=== PATIENT | female | born 1950 ===

== ENCOUNTER 2020-06-27 02:09 | Inpatient (IN) | payer OTHER ==
[2020-06-27] MEDS ORDERED: ACETAMINOPHEN 1000 MG/100 ML VIAL (NON FORMULARY) IVPB ONE (02:25)
[2020-06-27] MEDS ORDERED: SODIUM CHLORIDE 0.9% 1000 ML INFUS.BAG IV ONE (02:30)
[2020-06-27] MEDS ORDERED: SODIUM CHLORIDE 0.9% 1000 ML INFUS.BAG IV SCH (02:30)
[2020-06-27] MEDS ORDERED: ACETAMINOPHEN INJECTION 100 ML IVPB ONE ×2 (02:50→03:18)
[2020-06-27 02:51] LABS: BASO % 0.4 % (0-2.0); EOS % 1.7 % (0-4.5); HEMATOCRIT 27.7 % (32.4-45.2); HEMOGLOBIN 9.2 GM/dL (10.7-15.3); LYMPH % 12.4 % (8-40); MCH 28.6 pg (25.7-33.7); MCHC 33.1 g/dl (32.0-36.0); MEAN CELL VOLUME 86.3 fl (80-96); MEAN PLT VOLUME 10.4 fl (7.5-11.1); NEUT % 72.5 % (42.8-82.8); PLATELET COUNT 266 K/MM3 (134-434); RBC 3.21 M/mm3 (3.60-5.2); RDW 13.8 % (11.6-15.6); WHITE BLOOD COUNT 6.4 K/mm3 (4.0-10.0)
[2020-06-27] MEDS ORDERED: VANCOMYCIN 1 GM in D5W (PRE-DOCKED) 1,000 MG/250 ML IVPB ONE (02:54)
[2020-06-27] MEDS ORDERED: PIPERACILLIN/TAZOB 3.375 GM 3.375 GM in DEXTROSE 5%-WATER - 50 ML IVPB ONE (02:55)
[2020-06-27 03:02] LABS: VENOUS BASE EXCESS 4.7 mmol/L (-2-2); VENOUS O2 SATURATION 88.9 % (70-80); VENOUS PH 7.427 (7.310-7.410)
[2020-06-27 03:07] LABS: CHLORIDE 98 mmol/L (98-107); POTASSIUM 3.8 mmol/L (3.5-5.1); SODIUM 136 mmol/L (136-145)
[2020-06-27 03:09] LABS: ALBUMIN 1.8 g/dl (3.4-5.0)
[2020-06-27 03:10] LABS: ANION GAP 7 MMOL/L (8-16); BLOOD UREA NITROGEN 32.1 mg/dL (7-18); CO2 31 mmol/L (21-32); GLUCOSE,RANDOM 150 mg/dL (74-106)
[2020-06-27 03:12] LABS: INR 1.18 (0.83-1.09); PROTHROMBIN TIME (PATIENT) 14.5 SEC (9.7-13.0)
[2020-06-27 03:13] LABS: CREATININE 1.2 mg/dL (0.55-1.3); SGOT/AST 38 U/L (15-37); SGPT/ALT 76 U/L (13-61)
[2020-06-27 03:14] LABS: BILIRUBIN,TOTAL 0.6 mg/dL (0.2-1); TOT PROT 6.4 g/dl (6.4-8.2)
[2020-06-27 03:15] LABS: ACTIVATED PTT 38.6 SECONDS (25.2-36.5); ALK PHOS 282 U/L (45-117)
[2020-06-27] MEDS ORDERED: AZTREONAM 2 GM in DEXTROSE 5%-WATER 100 ML IVPB ONE (03:23)
[2020-06-27] MEDS ORDERED: VANCOMYCIN 1 GRAM (PRE-DOCKED) 1,000 MG/250 ML BAG IVPB ONE (03:27)
[2020-06-27] MEDS ORDERED: PIPERACILLIN/TAZOB 3.375 GM 3.375 GM/50 ML BAG IVPB ONE (03:28)
[2020-06-27 03:31] LABS: BILIRUBIN,DIRECT 0.3 mg/dL (0.0-0.2)
[2020-06-27 03:38] LABS: EPI CELLS 17 /uL (0-25.1); HYALINE CASTS 3 /uL (0-3.1); URINE APPEARANCE TURBID; URINE BACTERIA >9,000 /uL (0-1359); URINE BILIRUBIN 1+ (NEGATIVE); URINE COLOR DK YELLOW; URINE GLUCOSE (UA) NEGATIVE (NEGATIVE); URINE KETONE NEGATIVE (NEGATIVE); URINE LEUK ESTERASE 3+ (NEGATIVE); URINE NITRITE NEGATIVE (NEGATIVE); URINE PROTEIN NEGATIVE (NEGATIVE); URINE RBC 48 /uL (0-23.9); URINE WBC 2912 /uL (0-25.8)
[2020-06-27] MEDS ORDERED: LACTATED RINGERS SOLUTION 1000 ML INFUS.BAG IV ONE (05:06)
[2020-06-27 06:04] LABS: ANISOCYTOSIS 2+; MACROCYTOSIS 0; PLATELET ESTIMATE NORMAL
[2020-06-27] MEDS ORDERED: AZTREONAM 1 GM VIAL (RESTRICTED TO ID) ONE (07:34)
[2020-06-27] MEDS ORDERED: NOREPINEPHRINE BITARTRATE 4 MG/4 ML ML IV ONE (07:34)
[2020-06-27] MEDS: NOREPINEPHRINE BITARTRATE 8,000 MCG/500 ML BAG IVPB SCH ×2 (08:49→08:57)
[2020-06-27] MEDS ORDERED: NOREPINEPHRINE NS PREMIX 8,000 MCG/500 ML BAG IVPB SCH (09:15)
[2020-06-27] MEDS ORDERED: LACTATED RINGERS SOLUTION 1,000 ML/1,000 ML INFUS.BAG IV STA (10:08)
[2020-06-27] MEDS: LACTATED RINGERS SOLUTION 1,000 ML/1,000 ML INFUS.BAG IV SCH ×2 (11:43→22:01)
[2020-06-27 12:30] VITALS: BMI 27.4
[2020-06-27] MEDS: VANCOMYCIN 1 GRAM (PRE-DOCKED) 1,000 MG/250 ML BAG IVPB SCH (16:11)
[2020-06-27] MEDS ORDERED: PIPERACILLIN/TAZOBACTAM 3.375 GM VIAL IVPB ONE (16:56)
[2020-06-27] MEDS ORDERED: DEXTROSE 5%-WATER - 50 ML IVPB ONE (16:57)
[2020-06-27] MEDS: PIPERACILLIN/TAZOB 3.375 GM 3.375 GM in DEXTROSE 5%-WATER - 50 ML IVPB SCH (17:05)
[2020-06-28] MEDS: PIPERACILLIN/TAZOB 3.375 GM 3.375 GM in DEXTROSE 5%-WATER - 50 ML IVPB SCH ×3 (02:55→17:10)
[2020-06-28] MEDS ORDERED: DEXTROSE 5%-WATER - 50 ML IVPB ONE ×4 (03:15→23:41)
[2020-06-28] MEDS ORDERED: PIPERACILLIN/TAZOBACTAM 3.375 GM VIAL IVPB ONE ×4 (03:15→23:41)
[2020-06-28] MEDS: VANCOMYCIN 1 GRAM (PRE-DOCKED) 1,000 MG/250 ML BAG IVPB SCH ×2 (03:26→15:03)
[2020-06-28 06:50] LABS: BASO % 0.4 % (0-2.0); EOS % 0.8 % (0-4.5); HEMATOCRIT 26.1 % (32.4-45.2); HEMOGLOBIN 8.8 GM/dL (10.7-15.3); LYMPH % 11.1 % (8-40); MCH 28.7 pg (25.7-33.7); MCHC 33.6 g/dl (32.0-36.0); MEAN CELL VOLUME 85.5 fl (80-96); MEAN PLT VOLUME 10.1 fl (7.5-11.1); MONO % 10.3 % (3.8-10.2); NEUT % 77.4 % (42.8-82.8); PLATELET COUNT 251 K/MM3 (134-434); RBC 3.05 M/mm3 (3.60-5.2); RDW 14.1 % (11.6-15.6); WHITE BLOOD COUNT 6.5 K/mm3 (4.0-10.0)
[2020-06-28 07:11] LABS: POTASSIUM 3.5 mmol/L (3.5-5.1)
[2020-06-28 07:12] LABS: CALCIUM 8.8 mg/dL (8.5-10.1)
[2020-06-28 07:13] LABS: ALBUMIN 1.6 g/dl (3.4-5.0); BLOOD UREA NITROGEN 11.2 mg/dL (7-18); MAGNESIUM 1.6 mg/dL (1.8-2.4)
[2020-06-28 07:16] LABS: CREATININE 0.7 mg/dL (0.55-1.3)
[2020-06-28 07:17] LABS: BILIRUBIN,TOTAL 0.7 mg/dL (0.2-1); TOT PROT 6.1 g/dl (6.4-8.2)
[2020-06-28] MEDS: LACTATED RINGERS SOLUTION 1,000 ML/1,000 ML INFUS.BAG IV SCH ×2 (07:53→18:46)
[2020-06-28] MEDS ORDERED: PT OWN MED DRAWER 7, Y5N ONE ×2 (07:58→09:28)
[2020-06-28] MEDS ORDERED: MAGNESIUM 1GM/D5W 100ML - 100 ML IVPB IVPB ONE (09:00)
[2020-06-28] MEDS: FAMOTIDINE 40 MG/5 ML ORAL SUSPENSION PEG SCH (10:34)
[2020-06-28 18:40] LABS: URINE APPEARANCE CLEAR; URINE BILIRUBIN NEGATIVE (NEGATIVE); URINE COLOR YELLOW; URINE GLUCOSE (UA) NEGATIVE (NEGATIVE); URINE KETONE NEGATIVE (NEGATIVE); URINE LEUK ESTERASE NEGATIVE (NEGATIVE); URINE NITRITE NEGATIVE (NEGATIVE); URINE PROTEIN NEGATIVE (NEGATIVE)
[2020-06-29] MEDS: PIPERACILLIN/TAZOB 3.375 GM 3.375 GM in DEXTROSE 5%-WATER - 50 ML IVPB SCH ×3 (01:45→17:11)
[2020-06-29] MEDS: VANCOMYCIN 1 GRAM (PRE-DOCKED) 1,000 MG/250 ML BAG IVPB SCH ×2 (04:24→16:30)
[2020-06-29 07:04] LABS: HEMATOCRIT 26.1 % (32.4-45.2); HEMOGLOBIN 8.9 GM/dL (10.7-15.3); MCH 29.1 pg (25.7-33.7); MCHC 33.9 g/dl (32.0-36.0); MEAN PLT VOLUME 10.1 fl (7.5-11.1); PLATELET COUNT 255 K/MM3 (134-434); RBC 3.04 M/mm3 (3.60-5.2)
[2020-06-29 07:23] LABS: POTASSIUM 3.3 mmol/L (3.5-5.1)
[2020-06-29 07:29] LABS: ALBUMIN 1.6 g/dl (3.4-5.0); CALCIUM 8.6 mg/dL (8.5-10.1)
[2020-06-29 07:30] LABS: BLOOD UREA NITROGEN 8.5 mg/dL (7-18)
[2020-06-29 07:31] LABS: BILIRUBIN,TOTAL 0.7 mg/dL (0.2-1); TOT PROT 6.3 g/dl (6.4-8.2)
[2020-06-29 07:33] LABS: CREATININE 0.7 mg/dL (0.55-1.3); MAGNESIUM 1.9 mg/dL (1.8-2.4)
[2020-06-29 09:06] LABS: WHITE BLOOD COUNT 12.3 K/mm3 (4.0-10.0)
[2020-06-29 09:07] LABS: MACROCYTOSIS 1+; PLATELET ESTIMATE NORMAL
[2020-06-29] MEDS ORDERED: PIPERACILLIN/TAZOBACTAM 3.375 GM VIAL IVPB ONE ×2 (09:22→16:26)
[2020-06-29] MEDS ORDERED: DEXTROSE 5%-WATER - 50 ML IVPB ONE ×2 (09:22→16:27)
[2020-06-29] MEDS ORDERED: PT OWN MED DRAWER 7, Y5N ONE (16:25)
[2020-06-29] MEDS: LACTATED RINGERS SOLUTION 1,000 ML/1,000 ML INFUS.BAG IV SCH (16:30)
[2020-06-29] MEDS: FAMOTIDINE 40 MG/5 ML ORAL SUSPENSION PEG SCH (16:31)
[2020-06-29] MEDS ORDERED: POTASSIUM CHLORIDE ORAL LIQUID 20 MEQ/15 ML PO ONE (19:28)
[2020-06-30] MEDS ORDERED: PIPERACILLIN/TAZOBACTAM 3.375 GM VIAL IVPB ONE ×3 (03:22→17:44)
[2020-06-30] MEDS ORDERED: DEXTROSE 5%-WATER - 50 ML IVPB ONE ×3 (03:22→17:44)
[2020-06-30] MEDS: PIPERACILLIN/TAZOB 3.375 GM 3.375 GM in DEXTROSE 5%-WATER - 50 ML IVPB SCH ×3 (03:27→18:23)
[2020-06-30] MEDS: VANCOMYCIN 1 GRAM (PRE-DOCKED) 1,000 MG/250 ML BAG IVPB SCH ×2 (05:55→15:06)
[2020-06-30 07:06] LABS: HEMATOCRIT 28.1 % (32.4-45.2); HEMOGLOBIN 9.3 GM/dL (10.7-15.3); MCH 28.4 pg (25.7-33.7); MCHC 33.1 g/dl (32.0-36.0); MEAN CELL VOLUME 85.8 fl (80-96); MEAN PLT VOLUME 9.5 fl (7.5-11.1); PLATELET COUNT 260 K/MM3 (134-434); RBC 3.27 M/mm3 (3.60-5.2); RDW 13.8 % (11.6-15.6); WHITE BLOOD COUNT 5.2 K/mm3 (4.0-10.0)
[2020-06-30 07:27] LABS: POTASSIUM 3.8 mmol/L (3.5-5.1)
[2020-06-30 07:29] LABS: BLOOD UREA NITROGEN 11.3 mg/dL (7-18); CALCIUM 8.6 mg/dL (8.5-10.1)
[2020-06-30 07:30] LABS: ALBUMIN 1.7 g/dl (3.4-5.0)
[2020-06-30 07:33] LABS: CREATININE 0.6 mg/dL (0.55-1.3)
[2020-06-30 07:34] LABS: BILIRUBIN,TOTAL 0.5 mg/dL (0.2-1); TOT PROT 6.2 g/dl (6.4-8.2)
[2020-06-30] MEDS ORDERED: PT OWN MED DRAWER 7, Y5N ONE (08:57)
[2020-06-30] MEDS: LACTATED RINGERS SOLUTION 1,000 ML/1,000 ML INFUS.BAG IV SCH ×3 (09:02→21:00)
[2020-06-30] MEDS: FAMOTIDINE 40 MG/5 ML ORAL SUSPENSION PEG SCH (09:40)
[2020-07-01] MEDS ORDERED: DEXTROSE 5%-WATER - 50 ML IVPB ONE ×4 (02:10→17:14)
[2020-07-01] MEDS ORDERED: PIPERACILLIN/TAZOBACTAM 3.375 GM VIAL IVPB ONE ×4 (02:10→17:14)
[2020-07-01] MEDS: PIPERACILLIN/TAZOB 3.375 GM 3.375 GM in DEXTROSE 5%-WATER - 50 ML IVPB SCH ×3 (02:11→17:16)
[2020-07-01] MEDS: FAMOTIDINE 40 MG/5 ML ORAL SUSPENSION PEG SCH (09:20)
[2020-07-01] MEDS: LACTATED RINGERS SOLUTION 1,000 ML/1,000 ML INFUS.BAG IV SCH ×3 (14:32→20:28)
[2020-07-01] MEDS: POLYETHYLENE GLYCOL 3350 119 GM BTL PEG SCH (22:07)
[2020-07-02] MEDS ORDERED: PIPERACILLIN/TAZOBACTAM 3.375 GM VIAL IVPB ONE ×3 (01:49→18:53)
[2020-07-02] MEDS ORDERED: DEXTROSE 5%-WATER - 50 ML IVPB ONE ×3 (01:49→18:53)
[2020-07-02] MEDS: PIPERACILLIN/TAZOB 3.375 GM 3.375 GM in DEXTROSE 5%-WATER - 50 ML IVPB SCH ×3 (02:05→19:00)
[2020-07-02] MEDS: LACTATED RINGERS SOLUTION 1,000 ML/1,000 ML INFUS.BAG IV SCH ×2 (02:05→21:28)
[2020-07-02] MEDS: SCOPOLAMINE HYDROBROMIDE 1 PATCH PATCH.TD72 TD SCH (08:25)
[2020-07-02] MEDS ORDERED: PT OWN MED DRAWER 7, Y5N ONE (10:10)
[2020-07-02] MEDS: FAMOTIDINE 40 MG/5 ML ORAL SUSPENSION PEG SCH (10:12)
[2020-07-02] MEDS: POLYETHYLENE GLYCOL 3350 119 GM BTL PEG SCH ×2 (10:12→21:29)
[2020-07-02] MEDS: VANCOMYCIN 1 GRAM (PRE-DOCKED) 1,000 MG/250 ML BAG IVPB SCH (11:28)
[2020-07-02] MEDS ORDERED: hydrALAZINE HCL 20 MG/ML VIAL IVPUSH PRN (14:17)
[2020-07-02] MEDS: CARVEDILOL 6.25 MG TABLET (FP) GT SCH (21:29)
[2020-07-03] MEDS: PIPERACILLIN/TAZOB 3.375 GM 3.375 GM in DEXTROSE 5%-WATER - 50 ML IVPB SCH ×3 (03:22→17:49)
[2020-07-03] MEDS ORDERED: DEXTROSE 5%-WATER - 50 ML IVPB ONE ×4 (05:16→21:25)
[2020-07-03] MEDS ORDERED: PIPERACILLIN/TAZOBACTAM 3.375 GM VIAL IVPB ONE ×4 (05:16→21:25)
[2020-07-03 06:49] LABS: HEMATOCRIT 29.5 % (32.4-45.2); HEMOGLOBIN 9.7 GM/dL (10.7-15.3); MCH 28.4 pg (25.7-33.7); MCHC 32.9 g/dl (32.0-36.0); MEAN CELL VOLUME 86.4 fl (80-96); MEAN PLT VOLUME 8.3 fl (7.5-11.1); PLATELET COUNT 254 K/MM3 (134-434); RBC 3.41 M/mm3 (3.60-5.2); RDW 14.2 % (11.6-15.6); WHITE BLOOD COUNT 6.1 K/mm3 (4.0-10.0)
[2020-07-03 07:31] LABS: BLOOD UREA NITROGEN 13.6 mg/dL (7-18); CALCIUM 8.9 mg/dL (8.5-10.1); MAGNESIUM 2.1 mg/dL (1.8-2.4); PHOSPHOROUS 4.1 mg/dL (2.5-4.9); POTASSIUM 3.6 mmol/L (3.5-5.1)
[2020-07-03] MEDS: cloNIDine HCL 0.1 MG TABLET GT SCH ×2 (08:54→21:26)
[2020-07-03] MEDS: CARVEDILOL 6.25 MG TABLET (FP) GT SCH ×2 (09:04→21:26)
[2020-07-03] MEDS: POLYETHYLENE GLYCOL 3350 119 GM BTL PEG SCH ×2 (09:05→21:26)
[2020-07-03] MEDS ORDERED: PT OWN MED DRAWER 7, Y5N ONE (09:08)
[2020-07-03] MEDS: FAMOTIDINE 40 MG/5 ML ORAL SUSPENSION PEG SCH (09:11)
[2020-07-03] MEDS: VANCOMYCIN 1 GRAM (PRE-DOCKED) 1,000 MG/250 ML BAG IVPB SCH (10:23)
[2020-07-03] MEDS ORDERED: ALBUTEROL SO4 2.5/IPRATROPIUM 0.5 INH SOL 3 ML VIAL.NEB. NEB PRN (13:49)
[2020-07-03] MEDS: ATORVASTATIN CA 10 MG TABLET (FP) PEG SCH (21:26)
[2020-07-03] MEDS: LACTATED RINGERS SOLUTION 1,000 ML/1,000 ML INFUS.BAG IV SCH ×2 (21:26→23:29)
[2020-07-04] MEDS: PIPERACILLIN/TAZOB 3.375 GM 3.375 GM in DEXTROSE 5%-WATER - 50 ML IVPB SCH ×3 (02:28→17:41)
[2020-07-04 07:28] LABS: HEMATOCRIT 27.5 % (32.4-45.2); MCH 28.5 pg (25.7-33.7); MCHC 32.9 g/dl (32.0-36.0); MEAN CELL VOLUME 86.6 fl (80-96); MEAN PLT VOLUME 8.5 fl (7.5-11.1); PLATELET COUNT 245 K/MM3 (134-434); RBC 3.17 M/mm3 (3.60-5.2); RDW 14.3 % (11.6-15.6); WHITE BLOOD COUNT 5.1 K/mm3 (4.0-10.0)
[2020-07-04 07:34] LABS: POTASSIUM 3.7 mmol/L (3.5-5.1)
[2020-07-04 07:36] LABS: CALCIUM 9.1 mg/dL (8.5-10.1)
[2020-07-04 07:37] LABS: BLOOD UREA NITROGEN 13.1 mg/dL (7-18); MAGNESIUM 2.2 mg/dL (1.8-2.4)
[2020-07-04 07:40] LABS: CREATININE 0.8 mg/dL (0.55-1.3); PHOSPHOROUS 3.5 mg/dL (2.5-4.9)
[2020-07-04] MEDS ORDERED: DEXTROSE 5%-WATER - 50 ML IVPB ONE ×2 (08:07→17:36)
[2020-07-04] MEDS ORDERED: PIPERACILLIN/TAZOBACTAM 3.375 GM VIAL IVPB ONE ×2 (08:07→17:36)
[2020-07-04] MEDS: CARVEDILOL 6.25 MG TABLET (FP) GT SCH ×2 (09:28→21:29)
[2020-07-04] MEDS: POLYETHYLENE GLYCOL 3350 119 GM BTL PEG SCH ×2 (09:28→21:29)
[2020-07-04] MEDS: ASPIRIN 81 MG CHEWABLE TABLETS PEG SCH (09:28)
[2020-07-04] MEDS: FAMOTIDINE 40 MG/5 ML ORAL SUSPENSION PEG SCH (09:28)
[2020-07-04] MEDS: cloNIDine HCL 0.1 MG TABLET GT SCH ×2 (09:29→21:29)
[2020-07-04] MEDS ORDERED: PT OWN MED DRAWER 7, Y5N ONE (10:30)
[2020-07-04] MEDS: VANCOMYCIN 1 GRAM (PRE-DOCKED) 1,000 MG/250 ML BAG IVPB SCH (10:46)
[2020-07-04] MEDS: ATORVASTATIN CA 10 MG TABLET (FP) PEG SCH (21:29)
[2020-07-04] MEDS: LACTATED RINGERS SOLUTION 1,000 ML/1,000 ML INFUS.BAG IV SCH (21:29)
[2020-07-05] MEDS ORDERED: PIPERACILLIN/TAZOBACTAM 3.375 GM VIAL IVPB ONE ×2 (01:41→08:37)
[2020-07-05] MEDS ORDERED: DEXTROSE 5%-WATER - 50 ML IVPB ONE ×2 (01:41→08:37)
[2020-07-05] MEDS: PIPERACILLIN/TAZOB 3.375 GM 3.375 GM in DEXTROSE 5%-WATER - 50 ML IVPB SCH ×2 (01:46→09:27)
[2020-07-05 09:02] LABS: HEMATOCRIT 25.9 % (32.4-45.2); HEMOGLOBIN 8.6 GM/dL (10.7-15.3); MCH 28.8 pg (25.7-33.7); MCHC 33.4 g/dl (32.0-36.0); MEAN CELL VOLUME 86.4 fl (80-96); MEAN PLT VOLUME 8.6 fl (7.5-11.1); PLATELET COUNT 232 K/MM3 (134-434); RDW 14.2 % (11.6-15.6); WHITE BLOOD COUNT 5.5 K/mm3 (4.0-10.0)
[2020-07-05] MEDS ORDERED: PT OWN MED DRAWER 7, Y5N ONE (09:22)
[2020-07-05 09:24] LABS: POTASSIUM 3.6 mmol/L (3.5-5.1)
[2020-07-05] MEDS: cloNIDine HCL 0.1 MG TABLET GT SCH ×2 (09:26→21:16)
[2020-07-05] MEDS: CARVEDILOL 6.25 MG TABLET (FP) GT SCH ×2 (09:26→21:16)
[2020-07-05] MEDS: SCOPOLAMINE HYDROBROMIDE 1 PATCH PATCH.TD72 TD SCH (09:26)
[2020-07-05] MEDS: FAMOTIDINE 40 MG/5 ML ORAL SUSPENSION PEG SCH (09:27)
[2020-07-05] MEDS: ASPIRIN 81 MG CHEWABLE TABLETS PEG SCH (09:27)
[2020-07-05] MEDS: POLYETHYLENE GLYCOL 3350 119 GM BTL PEG SCH (09:28)
[2020-07-05 09:32] LABS: BLOOD UREA NITROGEN 12.8 mg/dL (7-18); CALCIUM 9.3 mg/dL (8.5-10.1)
[2020-07-05 09:35] LABS: CREATININE 0.7 mg/dL (0.55-1.3)
[2020-07-05] MEDS: ATORVASTATIN CA 10 MG TABLET (FP) PEG SCH (21:16)
[2020-07-05] MEDS: VANCOMYCIN 250 MG/5 ML ORAL SOLUTION GT SCH (23:30)
[2020-07-05] MEDS: LACTATED RINGERS SOLUTION 1,000 ML/1,000 ML INFUS.BAG IV SCH (23:47)
[2020-07-06] MEDS: VANCOMYCIN 250 MG/5 ML ORAL SOLUTION GT SCH ×4 (05:27→23:08)
[2020-07-06] MEDS ORDERED: PT OWN MED DRAWER 7, Y5N ONE (09:49)
[2020-07-06] MEDS: ASPIRIN 81 MG CHEWABLE TABLETS PEG SCH (10:12)
[2020-07-06] MEDS: cloNIDine HCL 0.1 MG TABLET GT SCH ×2 (10:12→21:52)
[2020-07-06] MEDS: CARVEDILOL 6.25 MG TABLET (FP) GT SCH ×2 (10:12→21:52)
[2020-07-06] MEDS: FAMOTIDINE 40 MG/5 ML ORAL SUSPENSION PEG SCH (10:13)
[2020-07-06] MEDS: LACTATED RINGERS SOLUTION 1,000 ML/1,000 ML INFUS.BAG IV SCH ×2 (14:19→18:33)
[2020-07-06] MEDS: ATORVASTATIN CA 10 MG TABLET (FP) PEG SCH (21:52)
[2020-07-07] MEDS: LACTATED RINGERS SOLUTION 1,000 ML/1,000 ML INFUS.BAG IV SCH (03:57)
[2020-07-07] MEDS: VANCOMYCIN 250 MG/5 ML ORAL SOLUTION GT SCH ×3 (05:06→17:29)
[2020-07-07] MEDS: CARVEDILOL 6.25 MG TABLET (FP) GT SCH ×2 (09:34→21:35)
[2020-07-07] MEDS: FAMOTIDINE 40 MG/5 ML ORAL SUSPENSION PEG SCH (09:35)
[2020-07-07] MEDS: cloNIDine HCL 0.1 MG TABLET GT SCH ×2 (09:35→21:35)
[2020-07-07] MEDS: ASPIRIN 81 MG CHEWABLE TABLETS PEG SCH (09:35)
[2020-07-07] MEDS: ATORVASTATIN CA 10 MG TABLET (FP) PEG SCH (21:35)
[2020-07-08] MEDS: VANCOMYCIN 250 MG/5 ML ORAL SOLUTION GT SCH ×4 (00:05→17:47)
[2020-07-08] MEDS: SCOPOLAMINE HYDROBROMIDE 1 PATCH PATCH.TD72 TD SCH (09:40)
[2020-07-08] MEDS: FAMOTIDINE 40 MG/5 ML ORAL SUSPENSION PEG SCH (09:41)
[2020-07-08] MEDS: ASPIRIN 81 MG CHEWABLE TABLETS PEG SCH (09:47)
[2020-07-08] MEDS: CARVEDILOL 6.25 MG TABLET (FP) GT SCH ×2 (09:47→21:47)
[2020-07-08] MEDS: cloNIDine HCL 0.1 MG TABLET GT SCH ×2 (09:47→21:47)
[2020-07-08] MEDS: ATORVASTATIN CA 10 MG TABLET (FP) PEG SCH (21:46)
[2020-07-09] MEDS: VANCOMYCIN 250 MG/5 ML ORAL SOLUTION GT SCH ×5 (00:07→23:39)
[2020-07-09] MEDS: ASPIRIN 81 MG CHEWABLE TABLETS PEG SCH (10:19)
[2020-07-09] MEDS: CARVEDILOL 6.25 MG TABLET (FP) GT SCH ×2 (10:19→22:22)
[2020-07-09] MEDS: cloNIDine HCL 0.1 MG TABLET GT SCH ×2 (10:19→22:22)
[2020-07-09] MEDS: AMINO ACIDS/PROTEIN HYDROLYS 30 ML LIQUID.PKT PEG SCH (10:19)
[2020-07-09] MEDS: FAMOTIDINE 40 MG/5 ML ORAL SUSPENSION PEG SCH (15:03)
[2020-07-09] MEDS: ATORVASTATIN CA 10 MG TABLET (FP) PEG SCH (22:22)
[2020-07-10] MEDS: VANCOMYCIN 250 MG/5 ML ORAL SOLUTION GT SCH ×4 (05:10→23:10)
[2020-07-10] MEDS ORDERED: PT OWN MED DRAWER 7, Y5N ONE (09:53)
[2020-07-10] MEDS: ASPIRIN 81 MG CHEWABLE TABLETS PEG SCH (11:54)
[2020-07-10] MEDS: AMINO ACIDS/PROTEIN HYDROLYS 30 ML LIQUID.PKT PEG SCH (11:54)
[2020-07-10] MEDS: CARVEDILOL 6.25 MG TABLET (FP) GT SCH ×2 (11:54→21:01)
[2020-07-10] MEDS: cloNIDine HCL 0.1 MG TABLET GT SCH ×2 (11:55→21:01)
[2020-07-10] MEDS: FAMOTIDINE 40 MG/5 ML ORAL SUSPENSION PEG SCH (11:55)
[2020-07-10 17:03] LABS: BASO % 0.7 % (0-2.0); EOS % 5.2 % (0-4.5); HEMATOCRIT 27.9 % (32.4-45.2); HEMOGLOBIN 8.9 GM/dL (10.7-15.3); LYMPH % 23.3 % (8-40); MCH 27.8 pg (25.7-33.7); MCHC 31.9 g/dl (32.0-36.0); MEAN CELL VOLUME 87.2 fl (80-96); MEAN PLT VOLUME 9.7 fl (7.5-11.1); MONO % 10.4 % (3.8-10.2); NEUT % 60.4 % (42.8-82.8); PLATELET COUNT 289 K/MM3 (134-434); RDW 14.8 % (11.6-15.6); WHITE BLOOD COUNT 4.4 K/mm3 (4.0-10.0)
[2020-07-10 17:26] LABS: POTASSIUM 4.1 mmol/L (3.5-5.1)
[2020-07-10 17:28] LABS: BLOOD UREA NITROGEN 19.4 mg/dL (7-18); CALCIUM 9.2 mg/dL (8.5-10.1); MAGNESIUM 2.3 mg/dL (1.8-2.4)
[2020-07-10 17:32] LABS: CREATININE 0.6 mg/dL (0.55-1.3); PHOSPHOROUS 4.5 mg/dL (2.5-4.9)
[2020-07-10 17:33] LABS: BILIRUBIN,TOTAL 0.3 mg/dL (0.2-1); TOT PROT 6.8 g/dl (6.4-8.2)
[2020-07-10] MEDS: ATORVASTATIN CA 10 MG TABLET (FP) PEG SCH (21:01)
[2020-07-11] MEDS: VANCOMYCIN 250 MG/5 ML ORAL SOLUTION GT SCH ×3 (05:02→18:14)
[2020-07-11 09:24] LABS: HEMATOCRIT 27.8 % (32.4-45.2); HEMOGLOBIN 9.1 GM/dL (10.7-15.3); MCH 28.4 pg (25.7-33.7); MCHC 32.8 g/dl (32.0-36.0); MEAN CELL VOLUME 86.4 fl (80-96); MEAN PLT VOLUME 9.7 fl (7.5-11.1); PLATELET COUNT 288 K/MM3 (134-434); RBC 3.22 M/mm3 (3.60-5.2); RDW 14.6 % (11.6-15.6); WHITE BLOOD COUNT 4.8 K/mm3 (4.0-10.0)
[2020-07-11 10:02] LABS: POTASSIUM 3.9 mmol/L (3.5-5.1)
[2020-07-11 10:05] LABS: CALCIUM 8.8 mg/dL (8.5-10.1)
[2020-07-11 10:06] LABS: BLOOD UREA NITROGEN 17.4 mg/dL (7-18)
[2020-07-11 10:10] LABS: BILIRUBIN,TOTAL 0.4 mg/dL (0.2-1); TOT PROT 6.9 g/dl (6.4-8.2)
[2020-07-11 10:12] LABS: CREATININE 0.7 mg/dL (0.55-1.3)
[2020-07-11] MEDS: cloNIDine HCL 0.1 MG TABLET GT SCH ×2 (10:19→21:20)
[2020-07-11] MEDS: ASPIRIN 81 MG CHEWABLE TABLETS PEG SCH (10:19)
[2020-07-11] MEDS: CARVEDILOL 6.25 MG TABLET (FP) GT SCH ×2 (10:19→21:20)
[2020-07-11] MEDS: AMINO ACIDS/PROTEIN HYDROLYS 30 ML LIQUID.PKT PEG SCH (10:19)
[2020-07-11] MEDS: SCOPOLAMINE HYDROBROMIDE 1 PATCH PATCH.TD72 TD SCH (10:21)
[2020-07-11] MEDS: FAMOTIDINE 40 MG/5 ML ORAL SUSPENSION PEG SCH (10:22)
[2020-07-11] MEDS ORDERED: ACETAMINOPHEN 650 MG/20.3 ML ORAL SOLUTION (CUPS) PO PRN (21:04)
[2020-07-12] MEDS: VANCOMYCIN 250 MG/5 ML ORAL SOLUTION GT SCH ×5 (00:50→23:13)
[2020-07-12] MEDS: ASPIRIN 81 MG CHEWABLE TABLETS PEG SCH (09:37)
[2020-07-12] MEDS: FAMOTIDINE 40 MG/5 ML ORAL SUSPENSION PEG SCH (09:37)
[2020-07-12] MEDS: CARVEDILOL 6.25 MG TABLET (FP) GT SCH ×2 (09:37→23:14)
[2020-07-12] MEDS: cloNIDine HCL 0.1 MG TABLET GT SCH ×2 (09:37→23:14)
[2020-07-12] MEDS: AMINO ACIDS/PROTEIN HYDROLYS 30 ML LIQUID.PKT PEG SCH (09:37)
[2020-07-12 13:45] LABS: POTASSIUM 3.5 mmol/L (3.5-5.1)
[2020-07-12 13:47] LABS: ALBUMIN 2.2 g/dl (3.4-5.0)
[2020-07-12 13:51] LABS: CREATININE 0.7 mg/dL (0.55-1.3); IRON SERUM 33 ug/dL (50-175)
[2020-07-12 13:52] LABS: BILIRUBIN,TOTAL 0.4 mg/dL (0.2-1); TOT PROT 7.3 g/dl (6.4-8.2); TOTAL IRON BINDING CAPACITY 259 ug/dL (250-450)
[2020-07-13] MEDS ORDERED: oxyCODONE HCL 5 MG TABLET PO ONE (01:30)
[2020-07-13] MEDS: VANCOMYCIN 250 MG/5 ML ORAL SOLUTION GT SCH ×3 (05:52→18:15)
[2020-07-13 08:51] LABS: BASO % 1.1 % (0-2.0); HEMOGLOBIN 8.9 GM/dL (10.7-15.3); LYMPH % 29.1 % (8-40); MCH 28.2 pg (25.7-33.7); MCHC 32.8 g/dl (32.0-36.0); MEAN CELL VOLUME 85.9 fl (80-96); MEAN PLT VOLUME 9.8 fl (7.5-11.1); MONO % 10.5 % (3.8-10.2); NEUT % 54.3 % (42.8-82.8); PLATELET COUNT 277 K/MM3 (134-434); RBC 3.14 M/mm3 (3.60-5.2); RDW 14.3 % (11.6-15.6); WHITE BLOOD COUNT 4.6 K/mm3 (4.0-10.0)
[2020-07-13 09:12] LABS: CALCIUM 8.7 mg/dL (8.5-10.1); POTASSIUM 3.5 mmol/L (3.5-5.1)
[2020-07-13 09:16] LABS: CREATININE 0.7 mg/dL (0.55-1.3)
[2020-07-13 09:18] LABS: BILIRUBIN,TOTAL 0.3 mg/dL (0.2-1); TOT PROT 6.9 g/dl (6.4-8.2)
[2020-07-13] MEDS: ASPIRIN 81 MG CHEWABLE TABLETS PEG SCH (10:46)
[2020-07-13] MEDS: cloNIDine HCL 0.1 MG TABLET GT SCH ×2 (10:46→22:17)
[2020-07-13] MEDS: CARVEDILOL 6.25 MG TABLET (FP) GT SCH ×2 (10:46→22:17)
[2020-07-13] MEDS: AMINO ACIDS/PROTEIN HYDROLYS 30 ML LIQUID.PKT PEG SCH (10:46)
[2020-07-13] MEDS: FAMOTIDINE 40 MG/5 ML ORAL SUSPENSION PEG SCH (10:46)
[2020-07-14] MEDS: VANCOMYCIN 250 MG/5 ML ORAL SOLUTION GT SCH ×5 (00:55→23:17)
[2020-07-14] MEDS ORDERED: PT OWN MED DRAWER 7, Y5N ONE (11:56)
[2020-07-14] MEDS: AMINO ACIDS/PROTEIN HYDROLYS 30 ML LIQUID.PKT PEG SCH (12:02)
[2020-07-14] MEDS: cloNIDine HCL 0.1 MG TABLET GT SCH ×2 (12:02→22:58)
[2020-07-14] MEDS: SCOPOLAMINE HYDROBROMIDE 1 PATCH PATCH.TD72 TD SCH (12:02)
[2020-07-14] MEDS: CARVEDILOL 6.25 MG TABLET (FP) GT SCH ×2 (12:02→22:58)
[2020-07-14] MEDS: ASPIRIN 81 MG CHEWABLE TABLETS PEG SCH (12:02)
[2020-07-14 13:07] LABS: HEP B CORE AB, TOT Negative (Negative)
[2020-07-14] MEDS: FAMOTIDINE 40 MG/5 ML ORAL SUSPENSION PEG SCH (18:37)
[2020-07-15] MEDS: VANCOMYCIN 250 MG/5 ML ORAL SOLUTION GT SCH ×4 (05:07→23:22)
[2020-07-15 09:02] LABS: ALBUMIN 2.1 g/dl (3.4-5.0)
[2020-07-15 09:04] LABS: BILIRUBIN,DIRECT 0.1 mg/dL (0.0-0.2)
[2020-07-15 09:06] LABS: BILIRUBIN,TOTAL 0.9 mg/dL (0.2-1)
[2020-07-15 09:07] LABS: TOT PROT 6.9 g/dl (6.4-8.2)
[2020-07-15] MEDS: ASPIRIN 81 MG CHEWABLE TABLETS PEG SCH (09:59)
[2020-07-15] MEDS: CARVEDILOL 6.25 MG TABLET (FP) GT SCH ×2 (09:59→21:35)
[2020-07-15] MEDS: cloNIDine HCL 0.1 MG TABLET GT SCH ×2 (09:59→21:35)
[2020-07-15] MEDS: AMINO ACIDS/PROTEIN HYDROLYS 30 ML LIQUID.PKT PEG SCH (10:00)
[2020-07-15] MEDS: FAMOTIDINE 40 MG/5 ML ORAL SUSPENSION PEG SCH (10:37)
[2020-07-15] MEDS ORDERED: ACETAMINOPHEN 650 MG/20.3 ML ORAL SOLUTION (CUPS) GT PRN (17:27)
[2020-07-16] MEDS: VANCOMYCIN 250 MG/5 ML ORAL SOLUTION GT SCH ×3 (05:36→18:25)
[2020-07-16] MEDS: ASPIRIN 81 MG CHEWABLE TABLETS PEG SCH (11:20)
[2020-07-16] MEDS: CARVEDILOL 6.25 MG TABLET (FP) GT SCH ×2 (11:20→22:20)
[2020-07-16] MEDS: AMINO ACIDS/PROTEIN HYDROLYS 30 ML LIQUID.PKT PEG SCH (11:20)
[2020-07-16] MEDS: cloNIDine HCL 0.1 MG TABLET GT SCH ×2 (11:20→22:20)
[2020-07-16] MEDS: FAMOTIDINE 40 MG/5 ML ORAL SUSPENSION PEG SCH (11:21)
[2020-07-17] MEDS: VANCOMYCIN 250 MG/5 ML ORAL SOLUTION GT SCH ×2 (00:23→05:48)
[2020-07-17 09:25] LABS: HEMATOCRIT 26.5 % (32.4-45.2); MCH 28.9 pg (25.7-33.7); MCHC 33.9 g/dl (32.0-36.0); MEAN CELL VOLUME 85.2 fl (80-96); MEAN PLT VOLUME 9.4 fl (7.5-11.1); PLATELET COUNT 288 K/MM3 (134-434); RBC 3.11 M/mm3 (3.60-5.2); RDW 14.8 % (11.6-15.6); WHITE BLOOD COUNT 5.3 K/mm3 (4.0-10.0)
[2020-07-17 09:55] LABS: POTASSIUM 3.9 mmol/L (3.5-5.1)
[2020-07-17] MEDS ORDERED: ACETAMINOPHEN 650 MG/20.3 ML ORAL SOLUTION (CUPS) PEG PRN (10:10)
[2020-07-17] MEDS: ASPIRIN 81 MG CHEWABLE TABLETS PEG SCH (10:27)
[2020-07-17] MEDS: FAMOTIDINE 40 MG/5 ML ORAL SUSPENSION PEG SCH (10:27)
[2020-07-17] MEDS: cloNIDine HCL 0.1 MG TABLET GT SCH (10:28)
[2020-07-17] MEDS: CARVEDILOL 6.25 MG TABLET (FP) GT SCH (10:28)
[2020-07-17] MEDS: SCOPOLAMINE HYDROBROMIDE 1 PATCH PATCH.TD72 TD SCH (10:29)
[2020-07-17 10:32] LABS: BLOOD UREA NITROGEN 17.9 mg/dL (7-18)
[2020-07-17 10:35] LABS: CREATININE 0.6 mg/dL (0.55-1.3)
[2020-07-17] MEDS: AMINO ACIDS/PROTEIN HYDROLYS 30 ML LIQUID.PKT PEG SCH ×2 (10:37→17:25)
[2020-07-17] MEDS: VANCOMYCIN 250 MG/5 ML ORAL SOLUTION PEG SCH ×3 (12:20→23:50)
[2020-07-17] MEDS: cloNIDine HCL 0.1 MG TABLET PEG SCH (21:44)
[2020-07-17] MEDS: CARVEDILOL 6.25 MG TABLET (FP) PEG SCH (21:44)
[2020-07-18] MEDS: VANCOMYCIN 250 MG/5 ML ORAL SOLUTION PEG SCH ×4 (05:20→23:33)
[2020-07-18] MEDS ORDERED: PT OWN MED DRAWER 7, Y5N ONE (11:58)
[2020-07-18] MEDS: FAMOTIDINE 40 MG/5 ML ORAL SUSPENSION PEG SCH (12:09)
[2020-07-18] MEDS: AMINO ACIDS/PROTEIN HYDROLYS 30 ML LIQUID.PKT PEG SCH ×2 (12:09→18:18)
[2020-07-18] MEDS: ASPIRIN 81 MG CHEWABLE TABLETS PEG SCH (12:09)
[2020-07-18] MEDS: CARVEDILOL 6.25 MG TABLET (FP) PEG SCH ×2 (12:11→22:08)
[2020-07-18] MEDS: cloNIDine HCL 0.1 MG TABLET PEG SCH ×2 (12:11→22:08)
[2020-07-19] MEDS: VANCOMYCIN 250 MG/5 ML ORAL SOLUTION PEG SCH ×2 (05:09→11:18)
[2020-07-19] MEDS ORDERED: PT OWN MED DRAWER 7, Y5N ONE (09:38)
[2020-07-19] MEDS: AMINO ACIDS/PROTEIN HYDROLYS 30 ML LIQUID.PKT PEG SCH (10:08)
[2020-07-19] MEDS: ASPIRIN 81 MG CHEWABLE TABLETS PEG SCH (10:09)
[2020-07-19] MEDS: cloNIDine HCL 0.1 MG TABLET PEG SCH (10:09)
[2020-07-19] MEDS: CARVEDILOL 6.25 MG TABLET (FP) PEG SCH (10:10)
[2020-07-19] MEDS: FAMOTIDINE 40 MG/5 ML ORAL SUSPENSION PEG SCH (10:10)
[2020-07-19 12:02] VITALS: BP 152/70; PULSE 56; TEMP 99
== END 2020-07-19 13:02 | DRG 720 ==
LOC: JER 02:09 → JERBED 03:11 → JICU 09:18 → J5S 07-04 21:37
PROVIDERS: ADMIT Family Medicine; ATTEND Family Medicine
PROC: 3E0G76Z Introduction of Nutritional Substance into Upper GI, Via Natural or Artificial Opening (ICD-10-PCS; principal; 2020-06-27)
PROC: 02H633Z Insertion of Infusion Device into Right Atrium, Percutaneous Approach (ICD-10-PCS; 2020-06-27)
PROC: 5A1955Z Respiratory Ventilation, Greater than 96 Consecutive Hours (ICD-10-PCS; 2020-06-27)
DX: A41.9 Sepsis, unspecified organism (principal); J18.9 Pneumonia, unspecified organism; Z99.11 Dependence on respirator [ventilator] status; I63.9 Cerebral infarction, unspecified; J96.10 Chronic respiratory failure, unspecified whether with hypoxia or hypercapnia; Z93.0 Tracheostomy status; A04.72 Enterocolitis due to Clostridium difficile, not specified as recurrent; R65.21 Severe sepsis with septic shock; G81.91 Hemiplegia, unspecified affecting right dominant side; R13.10 Dysphagia, unspecified; G20 Parkinson's disease; E87.0 Hyperosmolality and hypernatremia; N39.0 Urinary tract infection, site not specified; D64.9 Anemia, unspecified; G40.909 Epilepsy, unspecified, not intractable, without status epilepticus; E66.9 Obesity, unspecified; I10 Essential (primary) hypertension; Z68.27 Body mass index [BMI] 27.0-27.9, adult; E78.5 Hyperlipidemia, unspecified; R74.8 Abnormal levels of other serum enzymes; R33.9 Retention of urine, unspecified
CPT/HCPCS: 36415; 70450-TC; 71045-TC-FY; 71275-TC; 74019-TC-FY; 74177-TC; 76705-TC; 80048; 80053; 80074; 80076; 80177; 81003; 82248; 82272; 82550; 82553; 82607; 82803; 82962; 82977; 83540; 83550; 83605; 83615; 83690; 83735; 84100; 84439; 84443; 84484; 85025; 85027; 85379; 85610; 85651; 85730; 86140; 86704; 86706; 86707; 86708; 86709; 86803; 86850; 86900; 86901; 87040; 87086; 87186; 87324; 87340; 87449; 87899; 93005; 93010; 94002; 97162-GP; 99285-25; C9803; G0480; J0131; J0735; U0003; U0005

== ENCOUNTER 2020-08-20 17:07 | Inpatient (IN) | payer OTHER ==
[2020-08-20] MEDS ORDERED: PIPERACILLIN/TAZOB 4.5 GM 4.5 GM in DEXTROSE 5%-WATER 100 ML IVPB ONE (18:12)
[2020-08-20] MEDS ORDERED: ACETAMINOPHEN 1000 MG/100 ML VIAL (NON FORMULARY) IVPB ONE (18:12)
[2020-08-20 18:48] LABS: VENOUS BASE EXCESS 7.3 mmol/L (-2-2); VENOUS O2 SATURATION 80.4 % (70-80); VENOUS PCO2 44.8 mmHg (38-52); VENOUS PH 7.47 (7.310-7.410)
[2020-08-20 18:50] LABS: BASO % 0.3 % (0-2.0); EOS % 0.1 % (0-4.5); LYMPH % 23.2 % (8-40); MCH 27.1 pg (25.7-33.7); MCHC 32.4 g/dl (32.0-36.0); MEAN CELL VOLUME 83.6 fl (80-96); MEAN PLT VOLUME 10.2 fl (7.5-11.1); MONO % 6.5 % (3.8-10.2); NEUT % 69.9 % (42.8-82.8); PLATELET COUNT 270 K/MM3 (134-434); RBC 4.07 M/mm3 (3.60-5.2); RDW 17.1 % (11.6-15.6); WHITE BLOOD COUNT 8.4 K/mm3 (4.0-10.0)
[2020-08-20] MEDS ORDERED: ACETAMINOPHEN INJECTION 100 ML IVPB ONE (18:53)
[2020-08-20] MEDS ORDERED: PIPERACILLIN/TAZOB 4.5 GM 4.5 GM/100 ML BAG IVPB ONE (18:53)
[2020-08-20 18:57] LABS: INR 1.38 (0.83-1.09); PROTHROMBIN TIME (PATIENT) 16.6 SEC (9.7-13.0)
[2020-08-20 18:59] LABS: ACTIVATED PTT 27.8 SECONDS (25.2-36.5)
[2020-08-20 19:03] LABS: EPI CELLS >36 /uL (0-25.1); HYALINE CASTS 12 /uL (0-3.1); URINE APPEARANCE CLOUDY; URINE BACTERIA 1915 /uL (0-1359); URINE BILIRUBIN NEGATIVE (NEGATIVE); URINE COLOR DK YELLOW; URINE GLUCOSE (UA) NEGATIVE (NEGATIVE); URINE KETONE NEGATIVE (NEGATIVE); URINE LEUK ESTERASE 2+ (NEGATIVE); URINE NITRITE NEGATIVE (NEGATIVE); URINE PROTEIN 1+ (NEGATIVE); URINE RBC 41 /uL (0-23.9); URINE UROBILINOGEN 0.2 mg/dL (0.2-1.0); URINE WBC 87 /uL (0-25.8)
[2020-08-20] MEDS ORDERED: SODIUM CHLORIDE 0.9% 500 ML INFUS.BAG IV ONE (19:09)
[2020-08-20 19:12] LABS: ALBUMIN 2.2 g/dl (3.4-5.0); CALCIUM 9.2 mg/dL (8.5-10.1)
[2020-08-20 19:13] LABS: BLOOD UREA NITROGEN 23.3 mg/dL (7-18)
[2020-08-20 19:16] LABS: CREATININE 0.9 mg/dL (0.55-1.3)
[2020-08-20 19:17] LABS: ANISOCYTOSIS 2+; MACROCYTOSIS 0; PLATELET ESTIMATE NORMAL; TOT PROT 8.1 g/dl (6.4-8.2)
[2020-08-20 20:20] LABS: LACTIC ACID 3.1 mmol/L (0.4-2.0)
[2020-08-20] MEDS ORDERED: LACTATED RINGERS SOLUTION 1000 ML INFUS.BAG IV ONE (20:28)
[2020-08-20] MEDS ORDERED: SODIUM CHLORIDE 0.9% 1000 ML INFUS.BAG IV ONE (22:25)
[2020-08-20] MEDS ORDERED: LACTATED RINGERS SOLUTION 1,000 ML/1,000 ML INFUS.BAG IV SCH (23:30)
[2020-08-21] MEDS ORDERED: LACTATED RINGERS SOLUTION 1000 ML INFUS.BAG IV ONE (00:14)
[2020-08-21] MEDS ORDERED: VANCOMYCIN 1 GM in D5W (PRE-DOCKED) 1,000 MG/250 ML IVPB ONE (00:15)
[2020-08-21] MEDS ORDERED: VANCOMYCIN 1 GRAM (PRE-DOCKED) 1,000 MG/250 ML BAG IVPB ONE (00:30)
[2020-08-21] MEDS ORDERED: DEXTROSE 5%-0.45% SALINE 1,000 ML IV SCH (00:45)
[2020-08-21] MEDS ORDERED: ACETAMINOPHEN 1000 MG/100 ML VIAL (NON FORMULARY) IVPB ONE (02:15)
[2020-08-21] MEDS ORDERED: ACETAMINOPHEN INJECTION 100 ML IVPB ONE ×2 (02:16→18:37)
[2020-08-21] MEDS ORDERED: FAMOTIDINE 20 MG/50 ML IVPB 20 MG/50 ML MG IVPB ONE (02:28)
[2020-08-21] MEDS: FAMOTIDINE 20 MG/50 ML IVPB 20 MG/50 ML MG IVPB SCH ×3 (02:32→22:22)
[2020-08-21] MEDS ORDERED: PIPERACILLIN/TAZOB 3.375 GM 3.375 GM/50 ML BAG IVPB ONE (02:51)
[2020-08-21] MEDS: PIPERACILLIN/TAZOB 3.375 GM 3.375 GM in DEXTROSE 5%-WATER - 50 ML IVPB SCH ×4 (02:55→18:00)
[2020-08-21 03:05] LABS: LACTIC ACID 3.1 mmol/L (0.4-2.0)
[2020-08-21] MEDS: MUPIROCIN 2% TOPICAL OINTMENT FOR DECOLONIZATION NS SCH ×2 (05:25→10:56)
[2020-08-21 06:02] LABS: BASO % 0.3 % (0-2.0); EOS % 2.7 % (0-4.5); HEMATOCRIT 24.9 % (32.4-45.2); HEMOGLOBIN 8.2 GM/dL (10.7-15.3); LYMPH % 18.1 % (8-40); MCH 27.3 pg (25.7-33.7); MCHC 32.8 g/dl (32.0-36.0); MEAN CELL VOLUME 83.2 fl (80-96); NEUT % 72.9 % (42.8-82.8); PLATELET COUNT 181 K/MM3 (134-434); RBC 2.99 M/mm3 (3.60-5.2); WHITE BLOOD COUNT 4.1 K/mm3 (4.0-10.0)
[2020-08-21 06:10] LABS: INR 1.43 (0.83-1.09); PROTHROMBIN TIME (PATIENT) 17.1 SEC (9.7-13.0)
[2020-08-21] MEDS: CHLORHEXIDINE GLUCONATE 4% CLEANSER FOR DECOLONIZATION TP SCH ×2 (06:18→23:36)
[2020-08-21 06:20] LABS: MAGNESIUM 1.9 mg/dL (1.8-2.4)
[2020-08-21 06:24] LABS: PHOSPHOROUS 2.6 mg/dL (2.5-4.9)
[2020-08-21 08:17] LABS: CHLORIDE 105 mmol/L (98-107); SODIUM 140 mmol/L (136-145)
[2020-08-21 08:18] LABS: CALCIUM 7.9 mg/dL (8.5-10.1)
[2020-08-21 08:19] LABS: BLOOD UREA NITROGEN 12.3 mg/dL (7-18); CO2 30 mmol/L (21-32); GLUCOSE,RANDOM 137 mg/dL (74-106)
[2020-08-21 08:22] LABS: CREATININE 0.5 mg/dL (0.55-1.3); SGOT/AST 57 U/L (15-37); SGPT/ALT 106 U/L (13-61)
[2020-08-21 08:24] LABS: BILIRUBIN,TOTAL 0.6 mg/dL (0.2-1)
[2020-08-21 08:27] LABS: ALBUMIN 1.6 g/dl (3.4-5.0); ALK PHOS 81 U/L (45-117); ANION GAP 5 MMOL/L (8-16); LACTIC ACID 2.2 mmol/L (0.4-2.0); TOT PROT 5.6 g/dl (6.4-8.2)
[2020-08-21] MEDS ORDERED: ePHEDrine SULFATE 50 MG/1 ML AMPULE ONE (08:33)
[2020-08-21] MEDS ORDERED: PHENYLEPHRINE HCL 10 MG/1 ML SINGLE DOSE VIAL ONE (08:33)
[2020-08-21] MEDS ORDERED: GLYCOPYRROLATE 0.2 MG/1 ML VIAL ONE (08:33)
[2020-08-21] MEDS ORDERED: LIDOCAINE HCL/PF 2% SDV 5ML VIAL ONE (08:34)
[2020-08-21] MEDS ORDERED: PROPOFOL 20 ML ONE ×3 (08:34)
[2020-08-21] MEDS ORDERED: SUCCINYLCHOLINE CHLORIDE 200 MG/10 ML SYRINGE ONE (08:34)
[2020-08-21] MEDS ORDERED: PIPERACILLIN/TAZOBACTAM 3.375 GM VIAL IVPB ONE ×2 (08:40→17:52)
[2020-08-21] MEDS ORDERED: ROCURONIUM BROMIDE 50 MG/5 ML SYRINGE ONE (08:40)
[2020-08-21] MEDS ORDERED: DEXTROSE 5%-WATER - 50 ML IVPB ONE ×2 (08:40→17:53)
[2020-08-21] MEDS ORDERED: LACTATED RINGERS SOLUTION 1,000 ML/1,000 ML INFUS.BAG IV SCH (08:45)
[2020-08-21] MEDS ORDERED: PANTOPRAZOLE SODIUM 40 MG VIAL IVPUSH SCH (10:00)
[2020-08-21] MEDS ORDERED: ONDANSETRON 4 MG/2 ML VIAL IVPUSH PRN (10:07)
[2020-08-21] MEDS: POTASSIUM CHLORIDE 20 MEQ PREMIX IVPB 100 ML IVPB SCH (10:55)
[2020-08-21] MEDS: VANCOMYCIN 1 GRAM (PRE-DOCKED) 1,000 MG/250 ML BAG IVPB SCH ×2 (11:12→23:41)
[2020-08-21] MEDS ORDERED: AMINO ACIDS 4.25%/D5W 1,000 ML IV SCH (17:45)
[2020-08-21] MEDS ORDERED: ACETAMINOPHEN 1000 MG/100 ML VIAL (NON FORMULARY) IVPB PRN (18:34)
[2020-08-21 18:58] VITALS: BMI 24.2
[2020-08-22] MEDS: MUPIROCIN 2% TOPICAL OINTMENT FOR DECOLONIZATION NS SCH ×2 (00:06→09:33)
[2020-08-22] MEDS ORDERED: PIPERACILLIN/TAZOBACTAM 3.375 GM VIAL IVPB ONE ×3 (01:46→18:00)
[2020-08-22] MEDS ORDERED: DEXTROSE 5%-WATER - 50 ML IVPB ONE ×3 (01:46→18:00)
[2020-08-22] MEDS ORDERED: PIPERACILLIN/TAZOB 3.375 GM 3.375 GM in DEXTROSE 5%-WATER - 50 ML IVPB SCH (02:00)
[2020-08-22] MEDS: PIPERACILLIN/TAZOB 3.375 GM 3.375 GM in DEXTROSE 5%-WATER - 50 ML IVPB SCH ×3 (02:47→18:04)
[2020-08-22 06:35] LABS: HEMOGLOBIN 8.2 GM/dL (10.7-15.3); MCH 27.2 pg (25.7-33.7); MCHC 32.9 g/dl (32.0-36.0); MEAN CELL VOLUME 82.7 fl (80-96); MEAN PLT VOLUME 9.2 fl (7.5-11.1); PLATELET COUNT 197 K/MM3 (134-434); RBC 3.02 M/mm3 (3.60-5.2); RDW 16.8 % (11.6-15.6)
[2020-08-22 06:59] LABS: BLOOD UREA NITROGEN 7.9 mg/dL (7-18); CALCIUM 8.1 mg/dL (8.5-10.1)
[2020-08-22 07:00] LABS: MAGNESIUM 1.7 mg/dL (1.8-2.4)
[2020-08-22 07:03] LABS: CREATININE 0.4 mg/dL (0.55-1.3); PHOSPHOROUS 2.3 mg/dL (2.5-4.9)
[2020-08-22] MEDS ORDERED: POTASSIUM PHOSPHATE 30 MM in SODIUM CHLORIDE 250 ML IVPB ONE (08:21)
[2020-08-22] MEDS: KCL 10 MEQ IVPB 10 MEQ/100 ML INFUS.BAG IVPB SCH ×2 (08:44→09:31)
[2020-08-22] MEDS ORDERED: MAGNESIUM SULF 50% (8.12 MEQ/2 ML-1 GM VIAL) IVPB ONE (09:00)
[2020-08-22] MEDS: FAMOTIDINE 20 MG/50 ML IVPB 20 MG/50 ML MG IVPB SCH ×2 (09:27→21:41)
[2020-08-22] MEDS: VANCOMYCIN 1 GRAM (PRE-DOCKED) 1,000 MG/250 ML BAG IVPB SCH ×2 (12:35→23:33)
[2020-08-22] MEDS ORDERED: ACETAMINOPHEN 1000 MG/100 ML VIAL (NON FORMULARY) IVPB PRN (16:06)
[2020-08-22] MEDS ORDERED: ONDANSETRON 4 MG/2 ML VIAL IVPUSH PRN (16:06)
[2020-08-22] MEDS: AMINO ACIDS 4.25%/D5W 1,000 ML IV SCH ×2 (17:50→23:43)
[2020-08-23] MEDS: MUPIROCIN 2% TOPICAL OINTMENT FOR DECOLONIZATION NS SCH ×3 (00:02→21:40)
[2020-08-23] MEDS: CHLORHEXIDINE GLUCONATE 4% CLEANSER FOR DECOLONIZATION TP SCH ×2 (00:03→21:40)
[2020-08-23] MEDS ORDERED: DEXTROSE 5%-WATER - 50 ML IVPB ONE ×2 (00:49→10:06)
[2020-08-23] MEDS ORDERED: PIPERACILLIN/TAZOBACTAM 3.375 GM VIAL IVPB ONE ×2 (00:49→10:06)
[2020-08-23] MEDS: PIPERACILLIN/TAZOB 3.375 GM 3.375 GM in DEXTROSE 5%-WATER - 50 ML IVPB SCH ×2 (01:44→10:15)
[2020-08-23 09:00] LABS: BASO % 0.5 % (0-2.0); EOS % 5.6 % (0-4.5); HEMATOCRIT 25.7 % (32.4-45.2); HEMOGLOBIN 8.5 GM/dL (10.7-15.3); LYMPH % 30.3 % (8-40); MCH 27.1 pg (25.7-33.7); MCHC 33.1 g/dl (32.0-36.0); MEAN CELL VOLUME 81.9 fl (80-96); MEAN PLT VOLUME 9.5 fl (7.5-11.1); MONO % 9.1 % (3.8-10.2); NEUT % 54.5 % (42.8-82.8); PLATELET COUNT 262 K/MM3 (134-434); RBC 3.14 M/mm3 (3.60-5.2); RDW 16.7 % (11.6-15.6); WHITE BLOOD COUNT 4.2 K/mm3 (4.0-10.0)
[2020-08-23 09:20] LABS: ALBUMIN 1.5 g/dl (3.4-5.0); BLOOD UREA NITROGEN 7.2 mg/dL (7-18); CALCIUM 7.7 mg/dL (8.5-10.1); MAGNESIUM 1.8 mg/dL (1.8-2.4)
[2020-08-23 09:23] LABS: CREATININE 0.4 mg/dL (0.55-1.3); PHOSPHOROUS 3.9 mg/dL (2.5-4.9)
[2020-08-23 09:25] LABS: BILIRUBIN,TOTAL 0.5 mg/dL (0.2-1); TOT PROT 5.8 g/dl (6.4-8.2)
[2020-08-23] MEDS: FAMOTIDINE 20 MG/50 ML IVPB 20 MG/50 ML MG IVPB SCH ×2 (11:03→21:40)
[2020-08-23] MEDS: KCL 10 MEQ IVPB 10 MEQ/100 ML INFUS.BAG IVPB SCH ×2 (11:45→12:53)
[2020-08-23] MEDS: VANCOMYCIN 1 GRAM (PRE-DOCKED) 1,000 MG/250 ML BAG IVPB SCH (13:58)
[2020-08-23] MEDS ORDERED: morphine SULFATE 4 MG/ML VIAL ONE (14:20)
[2020-08-23] MEDS ORDERED: morphine SULFATE 4 MG/ML VIAL IVPUSH ONE (14:30)
[2020-08-23] MEDS ORDERED: AMPICILLIN SODIUM 2 GM VIAL ONE ×2 (15:41→21:15)
[2020-08-23] MEDS ORDERED: SODIUM CHLORIDE 100 ML IVPB ONE ×2 (15:41→21:15)
[2020-08-23] MEDS: AMPICILLIN - 2 GM in SODIUM CHLORIDE 100 ML IVPB SCH ×2 (16:04→21:40)
[2020-08-23] MEDS: FLUCONAZOLE 200 MG/NS 100 ML IVPB SCH (16:48)
[2020-08-23] MEDS: AMINO ACIDS 4.25%/D5W 1,000 ML IV SCH ×2 (17:45→18:48)
[2020-08-24] MEDS ORDERED: SODIUM CHLORIDE 100 ML IVPB ONE ×4 (01:24→21:59)
[2020-08-24] MEDS ORDERED: AMPICILLIN SODIUM 2 GM VIAL ONE ×4 (01:24→21:59)
[2020-08-24] MEDS: AMPICILLIN - 2 GM in SODIUM CHLORIDE 100 ML IVPB SCH ×4 (02:03→22:00)
[2020-08-24] MEDS: AMINO ACIDS 4.25%/D5W 1,000 ML IV SCH ×2 (05:27→19:09)
[2020-08-24 07:56] LABS: BASO % 0.4 % (0-2.0); HEMATOCRIT 27.3 % (32.4-45.2); LYMPH % 30.9 % (8-40); MCH 27.4 pg (25.7-33.7); MCHC 33.1 g/dl (32.0-36.0); MEAN CELL VOLUME 82.8 fl (80-96); MONO % 10.6 % (3.8-10.2); NEUT % 52.1 % (42.8-82.8); PLATELET COUNT 271 K/MM3 (134-434); RBC 3.29 M/mm3 (3.60-5.2); RDW 17.2 % (11.6-15.6); WHITE BLOOD COUNT 4.8 K/mm3 (4.0-10.0)
[2020-08-24] MEDS ORDERED: DEXTROSE 5%-WATER 100 ML IVPB ONE (08:52)
[2020-08-24 09:02] LABS: ALBUMIN 1.6 g/dl (3.4-5.0); BLOOD UREA NITROGEN 8.7 mg/dL (7-18); CALCIUM 8.1 mg/dL (8.5-10.1)
[2020-08-24 09:05] LABS: CREATININE 0.5 mg/dL (0.55-1.3)
[2020-08-24 09:07] LABS: BILIRUBIN,TOTAL 0.3 mg/dL (0.2-1)
[2020-08-24] MEDS: MUPIROCIN 2% TOPICAL OINTMENT FOR DECOLONIZATION NS SCH ×2 (09:27→22:01)
[2020-08-24] MEDS: FAMOTIDINE 20 MG/50 ML IVPB 20 MG/50 ML MG IVPB SCH ×2 (09:27→22:39)
[2020-08-24] MEDS: FLUCONAZOLE 200 MG/NS 100 ML IVPB SCH (09:28)
[2020-08-24] MEDS: CEFTRIAXONE 2 GM in DEXTROSE 5%-WATER 100 ML IVPB SCH (09:28)
[2020-08-24] MEDS: ACETAMINOPHEN 1000 MG/100 ML VIAL (NON FORMULARY) IVPB PRN (09:29)
[2020-08-24] MEDS ORDERED: KCL 10 MEQ IVPB 10 MEQ/100 ML INFUS.BAG IVPB SCH ×2 (12:45→14:30)
[2020-08-24] MEDS: POTASSIUM CHLORIDE TABS 20 MEQ TABLET.ER (FP) PO SCH (13:09)
[2020-08-24] MEDS: KCL 10 MEQ IVPB 10 MEQ/100 ML INFUS.BAG IVPB SCH (14:31)
[2020-08-24] MEDS: CHLORHEXIDINE GLUCONATE 4% CLEANSER FOR DECOLONIZATION TP SCH (22:01)
[2020-08-25] MEDS ORDERED: SODIUM CHLORIDE 100 ML IVPB ONE ×4 (02:12→20:31)
[2020-08-25] MEDS ORDERED: AMPICILLIN SODIUM 2 GM VIAL ONE ×4 (02:12→20:31)
[2020-08-25] MEDS: AMPICILLIN - 2 GM in SODIUM CHLORIDE 100 ML IVPB SCH ×4 (02:23→20:33)
[2020-08-25] MEDS: MORPHINE SULFATE 2 MG/ML VIAL IVPUSH PRN ×2 (06:20→17:12)
[2020-08-25] MEDS: AMINO ACIDS 4.25%/D5W 1,000 ML IV SCH ×2 (06:20→17:56)
[2020-08-25 07:27] LABS: HEMATOCRIT 25.5 % (32.4-45.2); HEMOGLOBIN 8.3 GM/dL (10.7-15.3); MCHC 32.4 g/dl (32.0-36.0); MEAN CELL VOLUME 83.4 fl (80-96); MEAN PLT VOLUME 8.9 fl (7.5-11.1); PLATELET COUNT 271 K/MM3 (134-434); RBC 3.06 M/mm3 (3.60-5.2); RDW 16.9 % (11.6-15.6); WHITE BLOOD COUNT 4.6 K/mm3 (4.0-10.0)
[2020-08-25 07:48] LABS: CHLORIDE 106 mmol/L (98-107); SODIUM 142 mmol/L (136-145)
[2020-08-25 07:52] LABS: CALCIUM 7.9 mg/dL (8.5-10.1)
[2020-08-25 07:53] LABS: CO2 31 mmol/L (21-32); GLUCOSE,RANDOM 98 mg/dL (74-106); MAGNESIUM 1.8 mg/dL (1.8-2.4)
[2020-08-25 07:56] LABS: CREATININE 0.4 mg/dL (0.55-1.3)
[2020-08-25 07:59] LABS: ANION GAP 5 MMOL/L (8-16)
[2020-08-25] MEDS ORDERED: DEXTROSE 5%-WATER 100 ML IVPB ONE (09:16)
[2020-08-25] MEDS: CEFTRIAXONE 2 GM in DEXTROSE 5%-WATER 100 ML IVPB SCH (09:35)
[2020-08-25] MEDS: MUPIROCIN 2% TOPICAL OINTMENT FOR DECOLONIZATION NS SCH ×2 (09:36→21:34)
[2020-08-25] MEDS: POTASSIUM CHLORIDE TABS 20 MEQ TABLET.ER (FP) PO SCH (09:36)
[2020-08-25] MEDS: FAMOTIDINE 20 MG/50 ML IVPB 20 MG/50 ML MG IVPB SCH ×2 (12:11→21:36)
[2020-08-25] MEDS ORDERED: PT OWN MED DRAWER 7, Y5N ONE (12:52)
[2020-08-25] MEDS: FLUCONAZOLE 200 MG/NS 100 ML IVPB SCH (12:54)
[2020-08-25] MEDS: SCOPOLAMINE HYDROBROMIDE 1 PATCH PATCH.TD72 TD SCH (12:54)
[2020-08-25] MEDS: KCL 10 MEQ IVPB 10 MEQ/100 ML INFUS.BAG IVPB SCH ×5 (14:47→23:54)
[2020-08-25] MEDS ORDERED: KCL 10 MEQ IVPB 10 MEQ/100 ML INFUS.BAG IVPB SCH (18:15)
[2020-08-25] MEDS: CHLORHEXIDINE GLUCONATE 4% CLEANSER FOR DECOLONIZATION TP SCH (21:34)
[2020-08-25 22:17] LABS: BLOOD UREA NITROGEN 7.5 mg/dL (7-18); CALCIUM 8.1 mg/dL (8.5-10.1); MAGNESIUM 1.8 mg/dL (1.8-2.4)
[2020-08-25 22:21] LABS: CREATININE 0.4 mg/dL (0.55-1.3)
[2020-08-26] MEDS ORDERED: SODIUM CHLORIDE 100 ML IVPB ONE ×4 (02:45→20:48)
[2020-08-26] MEDS ORDERED: AMPICILLIN SODIUM 2 GM VIAL ONE ×4 (02:45→20:48)
[2020-08-26] MEDS: AMPICILLIN - 2 GM in SODIUM CHLORIDE 100 ML IVPB SCH ×4 (02:47→20:55)
[2020-08-26] MEDS: MORPHINE SULFATE 2 MG/ML VIAL IVPUSH PRN (05:07)
[2020-08-26] MEDS: AMINO ACIDS 4.25%/D5W 1,000 ML IV SCH ×2 (06:03→18:05)
[2020-08-26 06:24] LABS: HEMATOCRIT 27.4 % (32.4-45.2); HEMOGLOBIN 9.1 GM/dL (10.7-15.3); MCH 27.1 pg (25.7-33.7); MCHC 33.2 g/dl (32.0-36.0); MEAN CELL VOLUME 81.6 fl (80-96); MEAN PLT VOLUME 8.1 fl (7.5-11.1); PLATELET COUNT 331 K/MM3 (134-434); RBC 3.36 M/mm3 (3.60-5.2); RDW 17.1 % (11.6-15.6); WHITE BLOOD COUNT 6.6 K/mm3 (4.0-10.0)
[2020-08-26 06:48] LABS: CALCIUM 8.2 mg/dL (8.5-10.1)
[2020-08-26 06:49] LABS: BLOOD UREA NITROGEN 7.6 mg/dL (7-18); MAGNESIUM 1.7 mg/dL (1.8-2.4)
[2020-08-26 06:52] LABS: CREATININE 0.5 mg/dL (0.55-1.3)
[2020-08-26] MEDS ORDERED: DEXTROSE 5%-WATER 100 ML IVPB ONE (09:03)
[2020-08-26] MEDS: FAMOTIDINE 20 MG/50 ML IVPB 20 MG/50 ML MG IVPB SCH ×2 (09:21→21:53)
[2020-08-26] MEDS: POTASSIUM CHLORIDE TABS 20 MEQ TABLET.ER (FP) PO SCH (09:29)
[2020-08-26] MEDS: MUPIROCIN 2% TOPICAL OINTMENT FOR DECOLONIZATION NS SCH (09:29)
[2020-08-26] MEDS: CEFTRIAXONE 2 GM in DEXTROSE 5%-WATER 100 ML IVPB SCH (09:41)
[2020-08-26] MEDS: FLUCONAZOLE 200 MG/NS 100 ML IVPB SCH (10:58)
[2020-08-26] MEDS: KCL 10 MEQ IVPB 10 MEQ/100 ML INFUS.BAG IVPB SCH ×2 (10:58→12:07)
[2020-08-26] MEDS ORDERED: FAT EMULSIONS 20% 500 ML PREMIX INFUS.BAG IV SCH (22:00)
[2020-08-26] MEDS ORDERED: FAT EMULSION/OLIVE/SOY/PHOSPHO 500 ML IV SCH (22:00)
[2020-08-26] MEDS ORDERED: POTASSIUM CHLORIDE 20 MEQ in AMINO ACIDS 4.25%/D5W 1,000 ML IV SCH (22:38)
[2020-08-27] MEDS ORDERED: SODIUM CHLORIDE 100 ML IVPB ONE ×4 (02:34→21:54)
[2020-08-27] MEDS ORDERED: AMPICILLIN SODIUM 2 GM VIAL ONE ×4 (02:34→21:54)
[2020-08-27] MEDS: AMPICILLIN - 2 GM in SODIUM CHLORIDE 100 ML IVPB SCH ×4 (02:36→21:58)
[2020-08-27 06:42] LABS: BASO % 0.4 % (0-2.0); EOS % 5.4 % (0-4.5); HEMATOCRIT 27.6 % (32.4-45.2); HEMOGLOBIN 9.1 GM/dL (10.7-15.3); LYMPH % 24.5 % (8-40); MCHC 32.9 g/dl (32.0-36.0); MEAN CELL VOLUME 82.2 fl (80-96); MEAN PLT VOLUME 8.3 fl (7.5-11.1); MONO % 9.8 % (3.8-10.2); NEUT % 59.9 % (42.8-82.8); PLATELET COUNT 332 K/MM3 (134-434); RBC 3.35 M/mm3 (3.60-5.2); RDW 17.4 % (11.6-15.6); WHITE BLOOD COUNT 6.2 K/mm3 (4.0-10.0)
[2020-08-27 06:59] LABS: CALCIUM 7.8 mg/dL (8.5-10.1)
[2020-08-27 07:00] LABS: ALBUMIN 1.7 g/dl (3.4-5.0); BLOOD UREA NITROGEN 10.7 mg/dL (7-18)
[2020-08-27 07:03] LABS: CREATININE 0.5 mg/dL (0.55-1.3)
[2020-08-27 07:05] LABS: BILIRUBIN,TOTAL 0.2 mg/dL (0.2-1); TOT PROT 6.4 g/dl (6.4-8.2)
[2020-08-27] MEDS ORDERED: DEXTROSE 5%-WATER 100 ML IVPB ONE (09:21)
[2020-08-27] MEDS: POTASSIUM CHLORIDE TABS 20 MEQ TABLET.ER (FP) PO SCH (09:33)
[2020-08-27] MEDS: CEFTRIAXONE 2 GM in DEXTROSE 5%-WATER 100 ML IVPB SCH (09:43)
[2020-08-27] MEDS: FAMOTIDINE 20 MG/50 ML IVPB 20 MG/50 ML MG IVPB SCH (10:20)
[2020-08-27] MEDS: FLUCONAZOLE 200 MG/NS 100 ML IVPB SCH (11:12)
[2020-08-27] MEDS: KCL 10 MEQ IVPB 10 MEQ/100 ML INFUS.BAG IVPB SCH ×2 (12:35→14:26)
[2020-08-27] MEDS: MORPHINE SULFATE 2 MG/ML VIAL IVPUSH PRN (13:14)
[2020-08-27] MEDS ORDERED: PT OWN MED DRAWER 7, Y5N ONE (21:54)
[2020-08-27] MEDS: FAMOTIDINE 40 MG/5 ML ORAL SUSPENSION NGT SCH (21:58)
[2020-08-28] MEDS ORDERED: SODIUM CHLORIDE 100 ML IVPB ONE ×4 (02:30→21:40)
[2020-08-28] MEDS ORDERED: AMPICILLIN SODIUM 2 GM VIAL ONE ×4 (02:30→21:40)
[2020-08-28] MEDS: AMPICILLIN - 2 GM in SODIUM CHLORIDE 100 ML IVPB SCH ×4 (02:42→21:44)
[2020-08-28 07:48] LABS: CALCIUM 8.2 mg/dL (8.5-10.1)
[2020-08-28 07:49] LABS: BLOOD UREA NITROGEN 10.4 mg/dL (7-18); MAGNESIUM 2.1 mg/dL (1.8-2.4)
[2020-08-28 07:52] LABS: CREATININE 0.5 mg/dL (0.55-1.3)
[2020-08-28] MEDS ORDERED: DEXTROSE 5%-WATER 100 ML IVPB ONE (09:04)
[2020-08-28] MEDS: CEFTRIAXONE 2 GM in DEXTROSE 5%-WATER 100 ML IVPB SCH (09:07)
[2020-08-28] MEDS: POTASSIUM CHLORIDE ORAL LIQUID 20 MEQ/15 ML NGT SCH (09:07)
[2020-08-28] MEDS ORDERED: PT OWN MED DRAWER 7, Y5N ONE ×2 (09:54→21:40)
[2020-08-28] MEDS: FAMOTIDINE 40 MG/5 ML ORAL SUSPENSION NGT SCH ×2 (10:14→21:44)
[2020-08-28] MEDS: FLUCONAZOLE 200 MG/NS 100 ML IVPB SCH (10:15)
[2020-08-28] MEDS: SCOPOLAMINE HYDROBROMIDE 1 PATCH PATCH.TD72 TD SCH (11:42)
[2020-08-28] MEDS: MORPHINE SULFATE 2 MG/ML VIAL IVPUSH PRN (15:44)
[2020-08-28] MEDS: ACETAMINOPHEN 1000 MG/100 ML VIAL (NON FORMULARY) IVPB PRN (18:51)
[2020-08-29] MEDS ORDERED: AMPICILLIN SODIUM 2 GM VIAL ONE ×3 (03:36→14:47)
[2020-08-29] MEDS ORDERED: SODIUM CHLORIDE 100 ML IVPB ONE ×3 (03:36→14:48)
[2020-08-29] MEDS: AMPICILLIN - 2 GM in SODIUM CHLORIDE 100 ML IVPB SCH ×3 (03:38→14:59)
[2020-08-29 07:45] LABS: CALCIUM 8.2 mg/dL (8.5-10.1)
[2020-08-29 07:46] LABS: ALBUMIN 1.9 g/dl (3.4-5.0)
[2020-08-29 07:49] LABS: CREATININE 0.4 mg/dL (0.55-1.3)
[2020-08-29 07:50] LABS: BILIRUBIN,TOTAL 0.2 mg/dL (0.2-1); TOT PROT 7.1 g/dl (6.4-8.2)
[2020-08-29] MEDS ORDERED: DEXTROSE 5%-WATER 100 ML IVPB ONE (08:48)
[2020-08-29] MEDS ORDERED: PT OWN MED DRAWER 7, Y5N ONE (08:49)
[2020-08-29] MEDS: CEFTRIAXONE 2 GM in DEXTROSE 5%-WATER 100 ML IVPB SCH (09:17)
[2020-08-29] MEDS: POTASSIUM CHLORIDE ORAL LIQUID 20 MEQ/15 ML NGT SCH (09:18)
[2020-08-29] MEDS: FAMOTIDINE 40 MG/5 ML ORAL SUSPENSION NGT SCH ×2 (09:18→23:20)
[2020-08-29] MEDS: FLUCONAZOLE 200 MG/NS 100 ML IVPB SCH (10:17)
[2020-08-30] MEDS: POTASSIUM CHLORIDE ORAL LIQUID 20 MEQ/15 ML NGT SCH (10:16)
[2020-08-30] MEDS: FAMOTIDINE 40 MG/5 ML ORAL SUSPENSION NGT SCH ×2 (10:17→22:20)
[2020-08-30] MEDS: AMINO ACIDS 4.25%/D5W 1,000 ML IV SCH (19:48)
[2020-08-30] MEDS: MORPHINE SULFATE 2 MG/ML VIAL IVPUSH PRN (22:32)
[2020-08-31 07:18] LABS: HEMOGLOBIN 9.6 GM/dL (10.7-15.3); MCH 26.9 pg (25.7-33.7); MEAN CELL VOLUME 81.3 fl (80-96); MEAN PLT VOLUME 8.5 fl (7.5-11.1); PLATELET COUNT 462 K/MM3 (134-434); RBC 3.56 M/mm3 (3.60-5.2); RDW 17.4 % (11.6-15.6); WHITE BLOOD COUNT 6.9 K/mm3 (4.0-10.0)
[2020-08-31] MEDS: FAMOTIDINE 40 MG/5 ML ORAL SUSPENSION NGT SCH ×2 (10:50→23:18)
[2020-08-31] MEDS: POTASSIUM CHLORIDE ORAL LIQUID 20 MEQ/15 ML NGT SCH (10:50)
[2020-08-31] MEDS: SCOPOLAMINE HYDROBROMIDE 1 PATCH PATCH.TD72 TD SCH (10:51)
[2020-08-31 11:20] LABS: ALBUMIN 2.2 g/dl (3.4-5.0); BILIRUBIN,TOTAL 0.4 mg/dL (0.2-1); BLOOD UREA NITROGEN 16.6 mg/dL (7-18); CALCIUM 8.8 mg/dL (8.5-10.1); CREATININE 0.5 mg/dL (0.55-1.3); MAGNESIUM 2.2 mg/dL (1.8-2.4); TOT PROT 7.7 g/dl (6.4-8.2)
[2020-08-31] MEDS: COLLAGENASE CLOSTRIDIUM HIST. 30 GRAMS TUBE TP SCH (13:44)
[2020-08-31] MEDS: MORPHINE SULFATE 2 MG/ML VIAL IVPUSH PRN (14:05)
[2020-08-31] MEDS: AMINO ACIDS 4.25%/D5W 1,000 ML IV SCH (21:11)
[2020-09-01] MEDS: ACETAMINOPHEN 1000 MG/100 ML VIAL (NON FORMULARY) IVPB PRN ×2 (07:57→16:57)
[2020-09-01] MEDS: MORPHINE SULFATE 2 MG/ML VIAL IVPUSH PRN (09:05)
[2020-09-01] MEDS: AMINO ACIDS/PROTEIN HYDROLYS 30 ML LIQUID.PKT PO SCH (09:06)
[2020-09-01] MEDS: COLLAGENASE CLOSTRIDIUM HIST. 30 GRAMS TUBE TP SCH (09:06)
[2020-09-01] MEDS: POTASSIUM CHLORIDE ORAL LIQUID 20 MEQ/15 ML NGT SCH (09:06)
[2020-09-01] MEDS: FAMOTIDINE 40 MG/5 ML ORAL SUSPENSION NGT SCH ×2 (09:06→22:44)
[2020-09-01] MEDS: AMINO ACIDS 4.25%/D5W 1,000 ML IV SCH ×3 (22:37→22:52)
[2020-09-01] MEDS ORDERED: PT OWN MED DRAWER 7, Y5N ONE (22:42)
[2020-09-02 07:38] LABS: BASO % 1.1 % (0-2.0); HEMATOCRIT 29.9 % (32.4-45.2); HEMOGLOBIN 9.8 GM/dL (10.7-15.3); MCH 26.8 pg (25.7-33.7); MCHC 32.8 g/dl (32.0-36.0); MEAN CELL VOLUME 81.7 fl (80-96); MONO % 9.6 % (3.8-10.2); NEUT % 58.3 % (42.8-82.8); PLATELET COUNT 405 K/MM3 (134-434); RBC 3.66 M/mm3 (3.60-5.2); RDW 17.7 % (11.6-15.6); WHITE BLOOD COUNT 6.8 K/mm3 (4.0-10.0)
[2020-09-02 07:50] LABS: CALCIUM 8.6 mg/dL (8.5-10.1)
[2020-09-02 07:51] LABS: ALBUMIN 2.3 g/dl (3.4-5.0); BLOOD UREA NITROGEN 15.1 mg/dL (7-18)
[2020-09-02 07:54] LABS: CREATININE 0.5 mg/dL (0.55-1.3)
[2020-09-02 07:55] LABS: BILIRUBIN,TOTAL 0.3 mg/dL (0.2-1); TOT PROT 8.1 g/dl (6.4-8.2)
[2020-09-02] MEDS: POTASSIUM CHLORIDE ORAL LIQUID 20 MEQ/15 ML NGT SCH (09:53)
[2020-09-02] MEDS: FAMOTIDINE 40 MG/5 ML ORAL SUSPENSION NGT SCH ×2 (09:53→22:52)
[2020-09-02] MEDS: COLLAGENASE CLOSTRIDIUM HIST. 30 GRAMS TUBE TP SCH (09:54)
[2020-09-02] MEDS: AMINO ACIDS/PROTEIN HYDROLYS 30 ML LIQUID.PKT PO SCH (09:54)
[2020-09-02] MEDS: ACETAMINOPHEN 1000 MG/100 ML VIAL (NON FORMULARY) IVPB PRN (12:42)
[2020-09-02] MEDS ORDERED: morphine SULFATE 4 MG/ML VIAL IVPUSH ONE (15:10)
[2020-09-02] MEDS ORDERED: PT OWN MED DRAWER 7, Y5N ONE (22:48)
[2020-09-02] MEDS: AMINO ACIDS 4.25%/D5W 1,000 ML IV SCH (22:51)
[2020-09-03] MEDS: FAMOTIDINE 40 MG/5 ML ORAL SUSPENSION NGT SCH ×2 (10:13→23:10)
[2020-09-03] MEDS: COLLAGENASE CLOSTRIDIUM HIST. 30 GRAMS TUBE TP SCH (10:13)
[2020-09-03] MEDS: POTASSIUM CHLORIDE ORAL LIQUID 20 MEQ/15 ML NGT SCH (10:13)
[2020-09-03] MEDS: SCOPOLAMINE HYDROBROMIDE 1 PATCH PATCH.TD72 TD SCH (11:14)
[2020-09-03] MEDS: AMINO ACIDS/PROTEIN HYDROLYS 30 ML LIQUID.PKT PO SCH (15:20)
[2020-09-03] MEDS: ACETAMINOPHEN 1000 MG/100 ML VIAL (NON FORMULARY) IVPB PRN (16:12)
[2020-09-03] MEDS: AMINO ACIDS 4.25%/D5W 1,000 ML IV SCH (17:39)
[2020-09-03] MEDS ORDERED: PT OWN MED DRAWER 7, Y5N ONE (22:42)
[2020-09-04] MEDS: COLLAGENASE CLOSTRIDIUM HIST. 30 GRAMS TUBE TP SCH ×2 (05:50→09:01)
[2020-09-04] MEDS ORDERED: PT OWN MED DRAWER 7, Y5N ONE ×2 (08:32→21:02)
[2020-09-04] MEDS: AMINO ACIDS/PROTEIN HYDROLYS 30 ML LIQUID.PKT PO SCH (08:51)
[2020-09-04] MEDS: FAMOTIDINE 40 MG/5 ML ORAL SUSPENSION NGT SCH ×2 (09:01→21:22)
[2020-09-04] MEDS: POTASSIUM CHLORIDE ORAL LIQUID 20 MEQ/15 ML NGT SCH (09:01)
[2020-09-04] MEDS: AMINO ACIDS 4.25%/D5W 1,000 ML IV SCH (18:55)
[2020-09-05] MEDS: COLLAGENASE CLOSTRIDIUM HIST. 30 GRAMS TUBE TP SCH (09:12)
[2020-09-05] MEDS: POTASSIUM CHLORIDE ORAL LIQUID 20 MEQ/15 ML NGT SCH (09:12)
[2020-09-05] MEDS: AMINO ACIDS/PROTEIN HYDROLYS 30 ML LIQUID.PKT PO SCH (09:12)
[2020-09-05] MEDS: FAMOTIDINE 40 MG/5 ML ORAL SUSPENSION NGT SCH ×2 (09:12→21:17)
[2020-09-05 12:53] LABS: BASO % 1.1 % (0-2.0); EOS % 4.8 % (0-4.5); HEMATOCRIT 31.4 % (32.4-45.2); HEMOGLOBIN 10.3 GM/dL (10.7-15.3); LYMPH % 36.5 % (8-40); MCH 26.7 pg (25.7-33.7); MCHC 32.7 g/dl (32.0-36.0); MEAN CELL VOLUME 81.5 fl (80-96); MONO % 10.5 % (3.8-10.2); NEUT % 47.1 % (42.8-82.8); PLATELET COUNT 380 K/MM3 (134-434); RBC 3.86 M/mm3 (3.60-5.2); RDW 17.8 % (11.6-15.6)
[2020-09-05 13:00] LABS: INR 1.15 (0.83-1.09); PROTHROMBIN TIME (PATIENT) 13.9 SEC (9.7-13.0)
[2020-09-05 13:02] LABS: ACTIVATED PTT 28.3 SECONDS (25.2-36.5)
[2020-09-05 13:32] LABS: ALBUMIN 2.5 g/dl (3.4-5.0); BLOOD UREA NITROGEN 16.4 mg/dL (7-18); CALCIUM 8.9 mg/dL (8.5-10.1)
[2020-09-05 13:35] LABS: CREATININE 0.4 mg/dL (0.55-1.3)
[2020-09-05 13:37] LABS: BILIRUBIN,TOTAL 0.2 mg/dL (0.2-1)
[2020-09-05] MEDS: AMINO ACIDS 4.25%/D5W 1,000 ML IV SCH (21:16)
[2020-09-06] MEDS: COLLAGENASE CLOSTRIDIUM HIST. 30 GRAMS TUBE TP SCH (09:04)
[2020-09-06] MEDS: AMINO ACIDS/PROTEIN HYDROLYS 30 ML LIQUID.PKT PO SCH (09:04)
[2020-09-06] MEDS: FAMOTIDINE 40 MG/5 ML ORAL SUSPENSION NGT SCH ×2 (09:04→22:51)
[2020-09-06] MEDS: POTASSIUM CHLORIDE ORAL LIQUID 20 MEQ/15 ML NGT SCH (09:04)
[2020-09-06] MEDS: SCOPOLAMINE HYDROBROMIDE 1 PATCH PATCH.TD72 TD SCH (11:37)
[2020-09-06] MEDS ORDERED: PT OWN MED DRAWER 7, Y5N ONE (22:13)
[2020-09-07] MEDS: COLLAGENASE CLOSTRIDIUM HIST. 30 GRAMS TUBE TP SCH ×2 (06:36→09:58)
[2020-09-07] MEDS: AMINO ACIDS/PROTEIN HYDROLYS 30 ML LIQUID.PKT PO SCH (09:58)
[2020-09-07] MEDS: FAMOTIDINE 40 MG/5 ML ORAL SUSPENSION NGT SCH ×2 (09:58→21:06)
[2020-09-07] MEDS: ACETAMINOPHEN 650 MG/20.3 ML ORAL SOLUTION (CUPS) NGT PRN ×2 (09:58→15:06)
[2020-09-07] MEDS: POTASSIUM CHLORIDE ORAL LIQUID 20 MEQ/15 ML NGT SCH (09:58)
[2020-09-07] MEDS ORDERED: PT OWN MED DRAWER 7, Y5N ONE (20:40)
[2020-09-08] MEDS: AMINO ACIDS/PROTEIN HYDROLYS 30 ML LIQUID.PKT PO SCH (09:17)
[2020-09-08] MEDS: COLLAGENASE CLOSTRIDIUM HIST. 30 GRAMS TUBE TP SCH (09:17)
[2020-09-08] MEDS: POTASSIUM CHLORIDE ORAL LIQUID 20 MEQ/15 ML NGT SCH (09:17)
[2020-09-08] MEDS: FAMOTIDINE 40 MG/5 ML ORAL SUSPENSION NGT SCH ×2 (09:24→21:06)
[2020-09-08] MEDS: ACETAMINOPHEN 650 MG/20.3 ML ORAL SOLUTION (CUPS) NGT PRN ×2 (12:34→21:03)
[2020-09-09] MEDS: ACETAMINOPHEN 650 MG/20.3 ML ORAL SOLUTION (CUPS) NGT PRN (05:33)
[2020-09-09] MEDS ORDERED: ONDANSETRON 4 MG/2 ML VIAL IVPUSH PRN ×2 (07:27→10:17)
[2020-09-09] MEDS ORDERED: LACTATED RINGERS SOLUTION 1,000 ML IV SCH (07:30)
[2020-09-09] MEDS ORDERED: PROPOFOL 20 ML ONE ×2 (07:46→08:25)
[2020-09-09] MEDS ORDERED: LIDOCAINE HCL/PF 2% SDV 5ML VIAL ONE (07:46)
[2020-09-09] MEDS ORDERED: ROCURONIUM BROMIDE 50 MG/5 ML SYRINGE ONE (07:46)
[2020-09-09] MEDS ORDERED: ceFAZolin SODIUM 1 GM VIAL ONE (08:13)
[2020-09-09] MEDS ORDERED: ceFAZolin SODIUM 1 GM VIAL IVPB ONE (08:14)
[2020-09-09] MEDS ORDERED: ONDANSETRON 4 MG/2 ML VIAL ONE (08:23)
[2020-09-09] MEDS ORDERED: DEXAMETHASONE SOD PHOSPHATE 4 MG/1 ML VIAL ONE (08:23)
[2020-09-09] MEDS ORDERED: BUPIVACAINE HCL/PF 0.5% (5MG/ML) 10 ML VIAL IJ ONE ×2 (08:31)
[2020-09-09] MEDS ORDERED: BUPIVACAINE HCL 50 ML ONE (08:34)
[2020-09-09] MEDS ORDERED: GLYCOPYRROLATE 0.2 MG/1 ML VIAL ONE (08:56)
[2020-09-09] MEDS ORDERED: NEOSTIGMINE METHYLSULFATE 0.5 MG/1 ML - 10 ML MDV ONE (08:56)
[2020-09-09] MEDS: AMINO ACIDS/PROTEIN HYDROLYS 30 ML LIQUID.PKT PO SCH (09:02)
[2020-09-09] MEDS: COLLAGENASE CLOSTRIDIUM HIST. 30 GRAMS TUBE TP SCH (09:03)
[2020-09-09] MEDS: FAMOTIDINE 40 MG/5 ML ORAL SUSPENSION NGT SCH ×2 (09:03→22:21)
[2020-09-09] MEDS: POTASSIUM CHLORIDE ORAL LIQUID 20 MEQ/15 ML NGT SCH (09:03)
[2020-09-09] MEDS ORDERED: ACETAMINOPHEN 650 MG/20.3 ML ORAL SOLUTION (CUPS) NGT PRN (10:17)
[2020-09-09] MEDS: SCOPOLAMINE HYDROBROMIDE 1 PATCH PATCH.TD72 TD SCH (11:17)
[2020-09-09] MEDS: LACTATED RINGERS SOLUTION 1,000 ML IV SCH (11:18)
[2020-09-09] MEDS: POTASSIUM CHLORIDE 20 MEQ in AMINO ACIDS 4.25%/D5W 1,000 ML IV SCH (18:19)
[2020-09-10] MEDS: AMINO ACIDS/PROTEIN HYDROLYS 30 ML LIQUID.PKT PO SCH (08:32)
[2020-09-10] MEDS: POTASSIUM CHLORIDE ORAL LIQUID 20 MEQ/15 ML NGT SCH (09:40)
[2020-09-10] MEDS: FAMOTIDINE 40 MG/5 ML ORAL SUSPENSION NGT SCH ×2 (09:40→21:11)
[2020-09-10] MEDS: COLLAGENASE CLOSTRIDIUM HIST. 30 GRAMS TUBE TP SCH (14:12)
[2020-09-10] MEDS: POTASSIUM CHLORIDE 20 MEQ in AMINO ACIDS 4.25%/D5W 1,000 ML IV SCH (18:15)
[2020-09-10] MEDS: LACTATED RINGERS SOLUTION 1,000 ML IV SCH (18:16)
[2020-09-11] MEDS: AMINO ACIDS/PROTEIN HYDROLYS 30 ML LIQUID.PKT PO SCH (08:47)
[2020-09-11] MEDS: FAMOTIDINE 40 MG/5 ML ORAL SUSPENSION NGT SCH ×2 (10:33→21:27)
[2020-09-11] MEDS: LACTATED RINGERS SOLUTION 1,000 ML IV SCH (10:33)
[2020-09-11] MEDS: POTASSIUM CHLORIDE ORAL LIQUID 20 MEQ/15 ML NGT SCH (10:33)
[2020-09-11] MEDS: COLLAGENASE CLOSTRIDIUM HIST. 30 GRAMS TUBE TP SCH (10:33)
[2020-09-11] MEDS ORDERED: SCOPOLAMINE HYDROBROMIDE 1 PATCH PATCH.TD72 TD SCH (10:45)
[2020-09-11 15:51] LABS: HEMATOCRIT 33.1 % (32.4-45.2); HEMOGLOBIN 10.4 GM/dL (10.7-15.3); MCH 25.8 pg (25.7-33.7); MCHC 31.5 g/dl (32.0-36.0); MEAN PLT VOLUME 9.3 fl (7.5-11.1); PLATELET COUNT 255 K/MM3 (134-434); RBC 4.04 M/mm3 (3.60-5.2); RDW 18.4 % (11.6-15.6); WHITE BLOOD COUNT 4.9 K/mm3 (4.0-10.0)
[2020-09-11 16:13] LABS: ALBUMIN 2.5 g/dl (3.4-5.0); BLOOD UREA NITROGEN 14.2 mg/dL (7-18)
[2020-09-11 16:14] LABS: CALCIUM 8.9 mg/dL (8.5-10.1)
[2020-09-11 16:16] LABS: CREATININE 0.4 mg/dL (0.55-1.3)
[2020-09-11 16:18] LABS: BILIRUBIN,TOTAL 0.3 mg/dL (0.2-1); TOT PROT 7.4 g/dl (6.4-8.2)
[2020-09-11] MEDS: POTASSIUM CHLORIDE 20 MEQ in AMINO ACIDS 4.25%/D5W 1,000 ML IV SCH (18:16)
[2020-09-11] MEDS: SCOPOLAMINE HYDROBROMIDE 1 PATCH PATCH.TD72 TD SCH (18:17)
[2020-09-11] MEDS ORDERED: KCL 10 MEQ IVPB 10 MEQ/100 ML INFUS.BAG IVPB SCH (20:00)
[2020-09-12] MEDS: AMINO ACIDS/PROTEIN HYDROLYS 30 ML LIQUID.PKT PO SCH (07:21)
[2020-09-12 08:40] LABS: HEMATOCRIT 34.3 % (32.4-45.2); HEMOGLOBIN 11.1 GM/dL (10.7-15.3); MCH 26.3 pg (25.7-33.7); MCHC 32.4 g/dl (32.0-36.0); MEAN CELL VOLUME 81.1 fl (80-96); MEAN PLT VOLUME 9.4 fl (7.5-11.1); PLATELET COUNT 257 K/MM3 (134-434); RBC 4.23 M/mm3 (3.60-5.2); RDW 17.8 % (11.6-15.6)
[2020-09-12 09:05] LABS: ALBUMIN 2.5 g/dl (3.4-5.0); CALCIUM 9.3 mg/dL (8.5-10.1)
[2020-09-12 09:06] LABS: BLOOD UREA NITROGEN 12.7 mg/dL (7-18)
[2020-09-12] MEDS: FAMOTIDINE 40 MG/5 ML ORAL SUSPENSION NGT SCH ×2 (09:08→21:38)
[2020-09-12] MEDS: POTASSIUM CHLORIDE ORAL LIQUID 20 MEQ/15 ML NGT SCH (09:08)
[2020-09-12 09:09] LABS: CREATININE 0.4 mg/dL (0.55-1.3)
[2020-09-12 09:10] LABS: BILIRUBIN,TOTAL 0.4 mg/dL (0.2-1); TOT PROT 7.8 g/dl (6.4-8.2)
[2020-09-12] MEDS: LACTATED RINGERS SOLUTION 1,000 ML IV SCH (11:28)
[2020-09-12] MEDS: SCOPOLAMINE HYDROBROMIDE 1 PATCH PATCH.TD72 TD SCH (11:28)
[2020-09-12] MEDS ORDERED: POTASSIUM CHLORIDE ORAL LIQUID 20 MEQ/15 ML PO ONE (13:44)
[2020-09-12] MEDS: COLLAGENASE CLOSTRIDIUM HIST. 30 GRAMS TUBE TP SCH (15:02)
[2020-09-12] MEDS: POTASSIUM CHLORIDE 20 MEQ in AMINO ACIDS 4.25%/D5W 1,000 ML IV SCH (17:02)
[2020-09-13] MEDS: POTASSIUM CHLORIDE ORAL LIQUID 20 MEQ/15 ML NGT SCH (10:55)
[2020-09-13] MEDS: AMINO ACIDS/PROTEIN HYDROLYS 30 ML LIQUID.PKT PO SCH (10:55)
[2020-09-13] MEDS: FAMOTIDINE 40 MG/5 ML ORAL SUSPENSION NGT SCH (10:56)
[2020-09-13] MEDS: LACTATED RINGERS SOLUTION 1,000 ML IV SCH (10:57)
[2020-09-13] MEDS: COLLAGENASE CLOSTRIDIUM HIST. 30 GRAMS TUBE TP SCH (10:57)
[2020-09-13] MEDS: POTASSIUM CHLORIDE 20 MEQ in AMINO ACIDS 4.25%/D5W 1,000 ML IV SCH ×2 (11:36→18:14)
[2020-09-13] MEDS: ACETAMINOPHEN 650 MG/20.3 ML ORAL SOLUTION (CUPS) GT PRN (15:08)
[2020-09-13] MEDS ORDERED: PT OWN MED DRAWER 7, Y5N ONE (21:02)
[2020-09-13] MEDS: FAMOTIDINE 40 MG/5 ML ORAL SUSPENSION NR SCH (22:31)
[2020-09-14 07:45] LABS: HEMATOCRIT 33.8 % (32.4-45.2); MCHC 32.4 g/dl (32.0-36.0); MEAN CELL VOLUME 80.3 fl (80-96); MEAN PLT VOLUME 8.8 fl (7.5-11.1); PLATELET COUNT 288 K/MM3 (134-434); RBC 4.21 M/mm3 (3.60-5.2); RDW 18.6 % (11.6-15.6); WHITE BLOOD COUNT 5.8 K/mm3 (4.0-10.0)
[2020-09-14 08:08] LABS: BLOOD UREA NITROGEN 16.3 mg/dL (7-18); MAGNESIUM 1.9 mg/dL (1.8-2.4)
[2020-09-14 08:09] LABS: CALCIUM 8.7 mg/dL (8.5-10.1)
[2020-09-14 08:12] LABS: CREATININE 0.4 mg/dL (0.55-1.3)
[2020-09-14] MEDS: POTASSIUM CHLORIDE ORAL LIQUID 20 MEQ/15 ML GT SCH (09:41)
[2020-09-14] MEDS: ASCORBIC ACID 500 MG/5 ML GT SCH (09:42)
[2020-09-14] MEDS: AMINO ACIDS/PROTEIN HYDROLYS 30 ML LIQUID.PKT GT SCH (09:42)
[2020-09-14] MEDS: MULTIVIT-MINERALS ORAL LIQUID GT SCH (09:42)
[2020-09-14] MEDS: FAMOTIDINE 40 MG/5 ML ORAL SUSPENSION NR SCH ×2 (09:43→21:02)
[2020-09-14] MEDS: COLLAGENASE CLOSTRIDIUM HIST. 30 GRAMS TUBE TP SCH (09:44)
[2020-09-14] MEDS: POTASSIUM CHLORIDE 20 MEQ in AMINO ACIDS 4.25%/D5W 1,000 ML IV SCH (17:55)
[2020-09-14] MEDS: LACTATED RINGERS SOLUTION 1,000 ML IV SCH (17:55)
[2020-09-15 08:12] LABS: SARS-CoV-2 NAA Not Detected (Not Detected)
[2020-09-15] MEDS: COLLAGENASE CLOSTRIDIUM HIST. 30 GRAMS TUBE TP SCH ×2 (11:00→11:19)
[2020-09-15] MEDS: FAMOTIDINE 40 MG/5 ML ORAL SUSPENSION NR SCH ×2 (11:17→22:21)
[2020-09-15] MEDS: AMINO ACIDS/PROTEIN HYDROLYS 30 ML LIQUID.PKT GT SCH (11:17)
[2020-09-15] MEDS: POTASSIUM CHLORIDE ORAL LIQUID 20 MEQ/15 ML GT SCH (11:17)
[2020-09-15] MEDS: ASCORBIC ACID 500 MG/5 ML GT SCH (11:18)
[2020-09-15] MEDS: MULTIVIT-MINERALS ORAL LIQUID GT SCH (11:19)
[2020-09-15] MEDS: SCOPOLAMINE HYDROBROMIDE 1 PATCH PATCH.TD72 TD SCH (13:40)
[2020-09-15] MEDS: LACTATED RINGERS SOLUTION 1,000 ML IV SCH (13:41)
[2020-09-15] MEDS: ACETAMINOPHEN 650 MG/20.3 ML ORAL SOLUTION (CUPS) GT PRN (14:20)
[2020-09-16] MEDS: COLLAGENASE CLOSTRIDIUM HIST. 30 GRAMS TUBE TP SCH (11:38)
[2020-09-16] MEDS: AMINO ACIDS/PROTEIN HYDROLYS 30 ML LIQUID.PKT GT SCH (11:49)
[2020-09-16] MEDS: POTASSIUM CHLORIDE ORAL LIQUID 20 MEQ/15 ML GT SCH (11:49)
[2020-09-16] MEDS: ASCORBIC ACID 500 MG/5 ML GT SCH (11:50)
[2020-09-16] MEDS: FAMOTIDINE 40 MG/5 ML ORAL SUSPENSION NR SCH (11:50)
[2020-09-16] MEDS: MULTIVIT-MINERALS ORAL LIQUID GT SCH (11:50)
[2020-09-16 14:53] VITALS: BP 149/64; PULSE 91; TEMP 98.6
== END 2020-09-16 20:39 | DRG 222 ==
LOC: JER 17:07 → JERBED 23:22 → JICU 08-21 05:04 → J5S 08-22 16:32 → J7W 08-23 17:58
PROVIDERS: ADMIT Internal Medicine Pulmonary Disease; ATTEND Family Medicine
PROC: B514ZZA Fluoroscopy of Left Jugular Veins, Guidance (ICD-10-PCS; 2020-08-21)
PROC: 0W9F0ZX Drainage of Abdominal Wall, Open Approach, Diagnostic (ICD-10-PCS; 2020-08-21)
PROC: 0KBL0ZZ Excision of Left Abdomen Muscle, Open Approach (ICD-10-PCS; 2020-08-21)
PROC: 3E10X8Z Irrigation of Skin and Mucous Membranes using Irrigating Substance (ICD-10-PCS; 2020-08-21)
PROC: 05HN33Z Insertion of Infusion Device into Left Internal Jugular Vein, Percutaneous Approach (ICD-10-PCS; principal; 2020-08-21 08:30)
PROC: 2W13X6Z Compression of Abdominal Wall using Pressure Dressing (ICD-10-PCS; 2020-08-23)
PROC: 0DH67UZ Insertion of Feeding Device into Stomach, Via Natural or Artificial Opening (ICD-10-PCS; 2020-08-26)
PROC: 3E0G76Z Introduction of Nutritional Substance into Upper GI, Via Natural or Artificial Opening (ICD-10-PCS; 2020-08-26)
PROC: 0DHA3UZ Insertion of Feeding Device into Jejunum, Percutaneous Approach (ICD-10-PCS; 2020-09-09)
DX: K94.22 Gastrostomy infection (principal); L03.311 Cellulitis of abdominal wall; E87.2 Acidosis; R50.9 Fever, unspecified; G81.91 Hemiplegia, unspecified affecting right dominant side; R00.0 Tachycardia, unspecified; J98.11 Atelectasis; A40.8 Other streptococcal sepsis; Y83.8 Other surgical procedures as the cause of abnormal reaction of the patient, or of later complication, without mention of misadventure at the time of the procedure; K65.9 Peritonitis, unspecified; J96.10 Chronic respiratory failure, unspecified whether with hypoxia or hypercapnia; J69.0 Pneumonitis due to inhalation of food and vomit; E78.5 Hyperlipidemia, unspecified; I10 Essential (primary) hypertension; G40.909 Epilepsy, unspecified, not intractable, without status epilepticus; G20 Parkinson's disease; I95.9 Hypotension, unspecified; G91.9 Hydrocephalus, unspecified; N39.0 Urinary tract infection, site not specified; B96.1 Klebsiella pneumoniae [K. pneumoniae] as the cause of diseases classified elsewhere; R74.8 Abnormal levels of other serum enzymes; R62.7 Adult failure to thrive; Z86.73 Personal history of transient ischemic attack (TIA), and cerebral infarction without residual deficits; Z68.24 Body mass index [BMI] 24.0-24.9, adult
CPT/HCPCS: 36415; 71045-TC-FY; 74018-TC-FY; 74176-TC; 74177-TC; 80048; 80053; 81003; 82803; 82962; 83605; 83735; 84100; 85025; 85027; 85610; 85730; 86850; 86900; 86901; 87040; 87070; 87077; 87086; 87186; 87205; 87804; 88304-TC; 93005; 93010; 93306-TC; 94760; 97161-GP; 99285-25; C9803; G0480; J0131; Q9967; U0003; U0005

== ENCOUNTER 2020-09-18 23:14 | Inpatient (IN) | payer OTHER ==
[2020-09-19] MEDS ORDERED: LORazepam 2 MG/ML SDV VIAL ONE (00:51)
[2020-09-19] MEDS ORDERED: LORazepam 2 MG/ML SDV VIAL IM ONE (01:00)
[2020-09-19 01:25] LABS: EPI CELLS >36 /uL (0-25.1); HYALINE CASTS 84 /uL (0-3.1); URINE APPEARANCE TURBID; URINE BACTERIA >9,000 /uL (0-1359); URINE BILIRUBIN NEGATIVE (NEGATIVE); URINE COLOR ORANGE; URINE GLUCOSE (UA) NEGATIVE (NEGATIVE); URINE KETONE NEGATIVE (NEGATIVE); URINE LEUK ESTERASE 3+ (NEGATIVE); URINE NITRITE POSITIVE (NEGATIVE); URINE PROTEIN 3+ (NEGATIVE); URINE RBC 8599 /uL (0-23.9); URINE WBC 5781 /uL (0-25.8)
[2020-09-19] MEDS ORDERED: CEFTRIAXONE 1 GM in DEXTROSE 5%-WATER - 100 ML IVPB ONE (01:31)
[2020-09-19] MEDS ORDERED: CEFTRIAXONE 1 GM/50 ML BAG ONE (01:50)
[2020-09-19 02:18] LABS: BASO % 0.5 % (0-2.0); EOS % 5.9 % (0-4.5); HEMATOCRIT 37.6 % (32.4-45.2); HEMOGLOBIN 12.3 GM/dL (10.7-15.3); MCH 26.4 pg (25.7-33.7); MCHC 32.7 g/dl (32.0-36.0); MEAN CELL VOLUME 80.6 fl (80-96); MEAN PLT VOLUME 9.4 fl (7.5-11.1); MONO % 7.8 % (3.8-10.2); NEUT % 66.8 % (42.8-82.8); PLATELET COUNT 257 K/MM3 (134-434); RBC 4.66 M/mm3 (3.60-5.2); RDW 18.4 % (11.6-15.6)
[2020-09-19 02:46] LABS: CALCIUM 9.1 mg/dL (8.5-10.1)
[2020-09-19 02:47] LABS: ALBUMIN 2.8 g/dl (3.4-5.0); BLOOD UREA NITROGEN 13.3 mg/dL (7-18)
[2020-09-19 02:50] LABS: CREATININE 0.4 mg/dL (0.55-1.3)
[2020-09-19 02:51] LABS: BILIRUBIN,TOTAL 0.4 mg/dL (0.2-1)
[2020-09-19 02:52] LABS: TOT PROT 8.3 g/dl (6.4-8.2)
[2020-09-19] MEDS ORDERED: POLYETHYLENE GLYCOL 3350 119 GM BTL PO PRN (09:58)
[2020-09-19] MEDS ORDERED: SCOPOLAMINE HYDROBROMIDE 1 PATCH PATCH.TD72 TD SCH (10:00)
[2020-09-19] MEDS ORDERED: SENNOSIDES 8.8 MG/5 ML BULK BOTTLE PO SCH (10:00)
[2020-09-19] MEDS ORDERED: FAMOTIDINE 20 MG TABLET PEG SCH (10:00)
[2020-09-19] MEDS ORDERED: FAMOTIDINE 20 MG TABLET NR SCH (10:14)
[2020-09-19] MEDS ORDERED: POLYETHYLENE GLYCOL 3350 119 GM BTL GT PRN (10:15)
[2020-09-19] MEDS ORDERED: CARVEDILOL 12.5 MG TABLET (FP) ONE (11:10)
[2020-09-19] MEDS ORDERED: FAMOTIDINE 20 MG TABLET ONE (11:11)
[2020-09-19] MEDS ORDERED: cloNIDine HCL 0.1 MG TABLET ONE (11:11)
[2020-09-19] MEDS ORDERED: HEPARIN NA (PORCINE) 5,000 UNITS/ML 1ML VIAL ONE (11:11)
[2020-09-19 11:26] LABS: ARTERIAL BLD GAS O2 SATURATION 96.2 mmHg (95-98); ARTERIAL BLOOD GAS BASE EXCESS 5.9 mmol/L (-2-2); ARTERIAL BLOOD GAS PO2 80.7 mmHg (80-100); ARTERIAL BLOOD GAS pH 7.446 (7.350-7.450)
[2020-09-19] MEDS: cloNIDine HCL 0.1 MG TABLET GT SCH ×2 (11:30→23:46)
[2020-09-19] MEDS: CARVEDILOL 25 MG TABLET (FP) GT SCH ×2 (11:30→23:46)
[2020-09-19 11:33] LABS: ALLENS TEST POSITIVE
[2020-09-19] MEDS: HEPARIN NA (PORCINE) 5,000 UNITS/ML 1ML VIAL SQ SCH ×2 (13:42→23:47)
[2020-09-19] MEDS: DOCUSATE NA 100 MG/10 ML UNIT-DOSE CUPS GT SCH (13:42)
[2020-09-19] MEDS ORDERED: ACETAMINOPHEN 650 MG/20.3 ML ORAL SOLUTION (CUPS) PO PRN (14:32)
[2020-09-19] MEDS ORDERED: LORazepam 2 MG/ML SDV VIAL IVPUSH PRN (15:37)
[2020-09-19] MEDS ORDERED: ACETAMINOPHEN 650 MG/20.3 ML ORAL SOLUTION (CUPS) GT PRN (15:37)
[2020-09-19] MEDS: ASCORBIC ACID 500 MG TABLET (FP) GT SCH (23:27)
[2020-09-19] MEDS: ATORVASTATIN CA 10 MG TABLET (FP) GT SCH (23:47)
[2020-09-19] MEDS: SENNOSIDES 8.8 MG/5 ML BULK BOTTLE GT SCH (23:47)
[2020-09-20] MEDS: HEPARIN NA (PORCINE) 5,000 UNITS/ML 1ML VIAL SQ SCH ×3 (05:57→23:08)
[2020-09-20 07:57] VITALS: BMI 19.5
[2020-09-20 08:37] LABS: BASO % 0.8 % (0-2.0); EOS % 3.4 % (0-4.5); HEMATOCRIT 34.8 % (32.4-45.2); HEMOGLOBIN 11.1 GM/dL (10.7-15.3); LYMPH % 29.1 % (8-40); MCH 26.1 pg (25.7-33.7); MEAN CELL VOLUME 81.5 fl (80-96); MONO % 12.8 % (3.8-10.2); NEUT % 53.9 % (42.8-82.8); PLATELET COUNT 233 K/MM3 (134-434); RBC 4.27 M/mm3 (3.60-5.2); RDW 18.7 % (11.6-15.6); WHITE BLOOD COUNT 3.9 K/mm3 (4.0-10.0)
[2020-09-20 08:52] LABS: ALBUMIN 2.4 g/dl (3.4-5.0); BLOOD UREA NITROGEN 15.3 mg/dL (7-18)
[2020-09-20 08:55] LABS: CREATININE 0.5 mg/dL (0.55-1.3)
[2020-09-20 08:56] LABS: BILIRUBIN,TOTAL 0.3 mg/dL (0.2-1)
[2020-09-20 08:57] LABS: TOT PROT 7.2 g/dl (6.4-8.2)
[2020-09-20] MEDS ORDERED: PT OWN MED DRAWER 7, Y5N ONE (09:16)
[2020-09-20] MEDS: cloNIDine HCL 0.1 MG TABLET GT SCH ×2 (09:25→23:08)
[2020-09-20] MEDS: SENNOSIDES 8.8 MG/5 ML BULK BOTTLE GT SCH ×2 (09:26→23:05)
[2020-09-20] MEDS: CARVEDILOL 25 MG TABLET (FP) GT SCH ×2 (09:26→23:08)
[2020-09-20] MEDS: ASCORBIC ACID 500 MG TABLET (FP) GT SCH (09:26)
[2020-09-20] MEDS: DOCUSATE NA 100 MG/10 ML UNIT-DOSE CUPS GT SCH (09:26)
[2020-09-20 09:59] LABS: ANISOCYTOSIS 0; MACROCYTOSIS 0; PLATELET ESTIMATE NORMAL
[2020-09-20] MEDS ORDERED: cefTRIAXone SODIUM 1 GM VIAL ONE (14:39)
[2020-09-20] MEDS ORDERED: DEXTROSE 5%-WATER - 50 ML IVPB ONE (14:39)
[2020-09-20] MEDS: CEFTRIAXONE 1 GM in DEXTROSE 5%-WATER - 50 ML IVPB SCH (16:08)
[2020-09-20] MEDS: busPIRone HCL 10 MG TABLET (FP) NR SCH (23:08)
[2020-09-20] MEDS: ATORVASTATIN CA 10 MG TABLET (FP) GT SCH (23:08)
[2020-09-20] MEDS: QUEtiapine FUMARATE 25 MG TABLET GT SCH (23:08)
[2020-09-21] MEDS ORDERED: DEXTROSE 5%-NORMAL SALINE 1,000 ML IV SCH (00:30)
[2020-09-21] MEDS: HEPARIN NA (PORCINE) 5,000 UNITS/ML 1ML VIAL SQ SCH ×3 (05:09→22:33)
[2020-09-21] MEDS ORDERED: PT OWN MED DRAWER 7, Y5N ONE ×3 (07:11→22:29)
[2020-09-21 08:47] LABS: BASO % 0.4 % (0-2.0); EOS % 1.6 % (0-4.5); HEMATOCRIT 29.5 % (32.4-45.2); HEMOGLOBIN 9.5 GM/dL (10.7-15.3); LYMPH % 22.2 % (8-40); MCH 26.1 pg (25.7-33.7); MCHC 32.2 g/dl (32.0-36.0); MEAN CELL VOLUME 80.9 fl (80-96); MEAN PLT VOLUME 9.7 fl (7.5-11.1); MONO % 10.4 % (3.8-10.2); NEUT % 65.4 % (42.8-82.8); PLATELET COUNT 232 K/MM3 (134-434); RBC 3.65 M/mm3 (3.60-5.2); RDW 18.7 % (11.6-15.6); WHITE BLOOD COUNT 6.9 K/mm3 (4.0-10.0)
[2020-09-21 09:01] LABS: CALCIUM 8.8 mg/dL (8.5-10.1)
[2020-09-21 09:02] LABS: ALBUMIN 2.1 g/dl (3.4-5.0)
[2020-09-21] MEDS ORDERED: cefTRIAXone SODIUM 1 GM VIAL ONE (09:02)
[2020-09-21] MEDS ORDERED: DEXTROSE 5%-WATER - 50 ML IVPB ONE (09:03)
[2020-09-21 09:05] LABS: CREATININE 0.5 mg/dL (0.55-1.3)
[2020-09-21 09:07] LABS: BILIRUBIN,TOTAL 0.4 mg/dL (0.2-1); TOT PROT 6.6 g/dl (6.4-8.2)
[2020-09-21] MEDS: cloNIDine HCL 0.1 MG TABLET GT SCH ×2 (09:37→22:31)
[2020-09-21] MEDS: CARVEDILOL 25 MG TABLET (FP) GT SCH ×2 (09:37→22:31)
[2020-09-21] MEDS: ASCORBIC ACID 500 MG TABLET (FP) GT SCH (09:37)
[2020-09-21] MEDS: DOCUSATE NA 100 MG/10 ML UNIT-DOSE CUPS GT SCH (09:38)
[2020-09-21] MEDS: SENNOSIDES 8.8 MG/5 ML BULK BOTTLE GT SCH ×2 (09:38→22:33)
[2020-09-21] MEDS: busPIRone HCL 10 MG TABLET (FP) NR SCH ×2 (09:39→22:31)
[2020-09-21] MEDS: CEFTRIAXONE 1 GM in DEXTROSE 5%-WATER - 50 ML IVPB SCH (09:39)
[2020-09-21] MEDS: FAMOTIDINE 40 MG/5 ML ORAL SUSPENSION NGT SCH (09:40)
[2020-09-21 11:16] LABS: ANISOCYTOSIS 1+; MACROCYTOSIS 1+; PLATELET ESTIMATE NORMAL
[2020-09-21] MEDS: ALBUTEROL SO4 2.5/IPRATROPIUM 0.5 INH SOL 3 ML VIAL.NEB. NEB SCH ×2 (16:05→20:46)
[2020-09-21] MEDS: QUEtiapine FUMARATE 25 MG TABLET GT SCH (22:31)
[2020-09-21] MEDS: ATORVASTATIN CA 10 MG TABLET (FP) GT SCH (22:31)
[2020-09-22] MEDS: HEPARIN NA (PORCINE) 5,000 UNITS/ML 1ML VIAL SQ SCH ×3 (05:03→21:36)
[2020-09-22] MEDS: ALBUTEROL SO4 2.5/IPRATROPIUM 0.5 INH SOL 3 ML VIAL.NEB. NEB SCH ×3 (07:44→19:39)
[2020-09-22 08:34] LABS: BASO % 0.6 % (0-2.0); EOS % 3.8 % (0-4.5); HEMATOCRIT 29.5 % (32.4-45.2); HEMOGLOBIN 9.4 GM/dL (10.7-15.3); LYMPH % 34.6 % (8-40); MCH 25.8 pg (25.7-33.7); MCHC 31.9 g/dl (32.0-36.0); MEAN CELL VOLUME 80.9 fl (80-96); MEAN PLT VOLUME 9.2 fl (7.5-11.1); MONO % 11.5 % (3.8-10.2); NEUT % 49.5 % (42.8-82.8); PLATELET COUNT 219 K/MM3 (134-434); RBC 3.64 M/mm3 (3.60-5.2); RDW 19.3 % (11.6-15.6); WHITE BLOOD COUNT 5.1 K/mm3 (4.0-10.0)
[2020-09-22 09:06] LABS: CALCIUM 8.8 mg/dL (8.5-10.1)
[2020-09-22 09:07] LABS: ALBUMIN 2.1 g/dl (3.4-5.0); BLOOD UREA NITROGEN 10.5 mg/dL (7-18)
[2020-09-22 09:10] LABS: CREATININE 0.5 mg/dL (0.55-1.3)
[2020-09-22 09:11] LABS: BILIRUBIN,TOTAL 0.3 mg/dL (0.2-1); TOT PROT 6.5 g/dl (6.4-8.2)
[2020-09-22] MEDS ORDERED: DEXTROSE 5%-WATER - 50 ML IVPB ONE (10:08)
[2020-09-22] MEDS ORDERED: cefTRIAXone SODIUM 1 GM VIAL ONE (10:08)
[2020-09-22] MEDS ORDERED: PT OWN MED DRAWER 7, Y5N ONE ×2 (10:08→21:34)
[2020-09-22] MEDS: ASCORBIC ACID 500 MG TABLET (FP) GT SCH (10:42)
[2020-09-22] MEDS: FAMOTIDINE 40 MG/5 ML ORAL SUSPENSION NGT SCH (10:42)
[2020-09-22] MEDS: CEFTRIAXONE 1 GM in DEXTROSE 5%-WATER - 50 ML IVPB SCH (10:42)
[2020-09-22] MEDS: busPIRone HCL 10 MG TABLET (FP) NR SCH ×2 (10:42→21:37)
[2020-09-22] MEDS: cloNIDine HCL 0.1 MG TABLET GT SCH ×2 (10:43→21:37)
[2020-09-22] MEDS: CARVEDILOL 25 MG TABLET (FP) GT SCH ×2 (10:43→21:37)
[2020-09-22] MEDS: DOCUSATE NA 100 MG/10 ML UNIT-DOSE CUPS GT SCH (10:43)
[2020-09-22] MEDS: SENNOSIDES 8.8 MG/5 ML BULK BOTTLE GT SCH ×2 (10:43→21:36)
[2020-09-22] MEDS: QUEtiapine FUMARATE 25 MG TABLET GT SCH (21:37)
[2020-09-22] MEDS: ATORVASTATIN CA 10 MG TABLET (FP) GT SCH (21:37)
[2020-09-23] MEDS: HEPARIN NA (PORCINE) 5,000 UNITS/ML 1ML VIAL SQ SCH ×3 (05:02→21:46)
[2020-09-23] MEDS: ALBUTEROL SO4 2.5/IPRATROPIUM 0.5 INH SOL 3 ML VIAL.NEB. NEB SCH ×3 (08:31→20:10)
[2020-09-23 08:56] LABS: BASO % 1.4 % (0-2.0); EOS % 4.1 % (0-4.5); HEMATOCRIT 29.3 % (32.4-45.2); HEMOGLOBIN 9.4 GM/dL (10.7-15.3); LYMPH % 42.8 % (8-40); MCH 25.9 pg (25.7-33.7); MCHC 32.1 g/dl (32.0-36.0); MEAN CELL VOLUME 80.9 fl (80-96); MEAN PLT VOLUME 9.7 fl (7.5-11.1); MONO % 11.1 % (3.8-10.2); NEUT % 40.6 % (42.8-82.8); PLATELET COUNT 237 K/MM3 (134-434); RBC 3.62 M/mm3 (3.60-5.2); RDW 18.8 % (11.6-15.6); WHITE BLOOD COUNT 4.3 K/mm3 (4.0-10.0)
[2020-09-23] MEDS: ASCORBIC ACID 500 MG TABLET (FP) GT SCH (09:03)
[2020-09-23] MEDS: busPIRone HCL 10 MG TABLET (FP) NR SCH ×2 (09:03→21:46)
[2020-09-23] MEDS: cloNIDine HCL 0.1 MG TABLET GT SCH ×2 (09:04→21:46)
[2020-09-23] MEDS: CARVEDILOL 25 MG TABLET (FP) GT SCH ×2 (09:04→21:47)
[2020-09-23] MEDS: DOCUSATE NA 100 MG/10 ML UNIT-DOSE CUPS GT SCH (09:05)
[2020-09-23 09:16] LABS: ALBUMIN 2.2 g/dl (3.4-5.0); BLOOD UREA NITROGEN 10.4 mg/dL (7-18)
[2020-09-23 09:18] LABS: CREATININE 0.5 mg/dL (0.55-1.3)
[2020-09-23 09:21] LABS: BILIRUBIN,TOTAL 0.2 mg/dL (0.2-1)
[2020-09-23] MEDS: FAMOTIDINE 40 MG/5 ML ORAL SUSPENSION NGT SCH (10:20)
[2020-09-23] MEDS: AMOX TR/POTASSIUM CLAVULANATE 600 MG/5 ML GT SCH ×2 (10:20→16:30)
[2020-09-23] MEDS: SENNOSIDES 8.8 MG/5 ML BULK BOTTLE GT SCH ×2 (15:22→21:49)
[2020-09-23] MEDS: QUEtiapine FUMARATE 25 MG TABLET GT SCH (21:46)
[2020-09-23] MEDS: ATORVASTATIN CA 10 MG TABLET (FP) GT SCH (21:46)
[2020-09-23] MEDS ORDERED: PT OWN MED DRAWER 7, Y5N ONE (21:48)
[2020-09-24] MEDS: HEPARIN NA (PORCINE) 5,000 UNITS/ML 1ML VIAL SQ SCH ×3 (05:23→22:12)
[2020-09-24] MEDS: ALBUTEROL SO4 2.5/IPRATROPIUM 0.5 INH SOL 3 ML VIAL.NEB. NEB SCH ×3 (08:14→20:17)
[2020-09-24] MEDS ORDERED: PT OWN MED DRAWER 7, Y5N ONE (11:07)
[2020-09-24] MEDS: DOCUSATE NA 100 MG/10 ML UNIT-DOSE CUPS GT SCH (11:08)
[2020-09-24] MEDS: CARVEDILOL 25 MG TABLET (FP) GT SCH ×2 (11:08→22:12)
[2020-09-24] MEDS: ASCORBIC ACID 500 MG TABLET (FP) GT SCH (11:08)
[2020-09-24] MEDS: FAMOTIDINE 40 MG/5 ML ORAL SUSPENSION NGT SCH (11:09)
[2020-09-24] MEDS: cloNIDine HCL 0.1 MG TABLET GT SCH ×2 (11:09→22:12)
[2020-09-24] MEDS: busPIRone HCL 10 MG TABLET (FP) NR SCH ×2 (11:09→22:11)
[2020-09-24] MEDS: SENNOSIDES 8.8 MG/5 ML BULK BOTTLE GT SCH ×2 (11:10→22:12)
[2020-09-24] MEDS: AMOX TR/POTASSIUM CLAVULANATE 600 MG/5 ML GT SCH ×2 (12:07→17:29)
[2020-09-24] MEDS: ATORVASTATIN CA 10 MG TABLET (FP) GT SCH (22:12)
[2020-09-24] MEDS: QUEtiapine FUMARATE 25 MG TABLET GT SCH (22:12)
[2020-09-25] MEDS: HEPARIN NA (PORCINE) 5,000 UNITS/ML 1ML VIAL SQ SCH ×3 (05:53→21:52)
[2020-09-25] MEDS: ALBUTEROL SO4 2.5/IPRATROPIUM 0.5 INH SOL 3 ML VIAL.NEB. NEB SCH ×3 (08:49→20:15)
[2020-09-25] MEDS ORDERED: PT OWN MED DRAWER 7, Y5N ONE ×2 (10:49→21:51)
[2020-09-25] MEDS: DOCUSATE NA 100 MG/10 ML UNIT-DOSE CUPS GT SCH (10:57)
[2020-09-25] MEDS: SENNOSIDES 8.8 MG/5 ML BULK BOTTLE GT SCH ×2 (10:57→21:52)
[2020-09-25] MEDS: FAMOTIDINE 40 MG/5 ML ORAL SUSPENSION NGT SCH (10:57)
[2020-09-25] MEDS: ASCORBIC ACID 500 MG TABLET (FP) GT SCH (10:58)
[2020-09-25] MEDS: busPIRone HCL 10 MG TABLET (FP) NR SCH ×2 (10:58→21:52)
[2020-09-25] MEDS: CARVEDILOL 25 MG TABLET (FP) GT SCH ×2 (10:58→21:52)
[2020-09-25] MEDS: cloNIDine HCL 0.1 MG TABLET GT SCH ×2 (10:58→21:52)
[2020-09-25] MEDS: AMOX TR/POTASSIUM CLAVULANATE 600 MG/5 ML GT SCH ×2 (10:59→18:07)
[2020-09-25] MEDS: QUEtiapine FUMARATE 25 MG TABLET GT SCH (21:52)
[2020-09-25] MEDS: ATORVASTATIN CA 10 MG TABLET (FP) GT SCH (21:52)
[2020-09-26] MEDS: HEPARIN NA (PORCINE) 5,000 UNITS/ML 1ML VIAL SQ SCH (05:34)
[2020-09-26] MEDS: ALBUTEROL SO4 2.5/IPRATROPIUM 0.5 INH SOL 3 ML VIAL.NEB. NEB SCH (07:35)
[2020-09-26] MEDS ORDERED: PT OWN MED DRAWER 7, Y5N ONE (09:41)
[2020-09-26] MEDS: AMOX TR/POTASSIUM CLAVULANATE 600 MG/5 ML GT SCH ×2 (09:47→16:57)
[2020-09-26] MEDS: ASCORBIC ACID 500 MG TABLET (FP) GT SCH (09:47)
[2020-09-26] MEDS: FAMOTIDINE 40 MG/5 ML ORAL SUSPENSION NGT SCH (09:47)
[2020-09-26] MEDS: busPIRone HCL 10 MG TABLET (FP) NR SCH (09:47)
[2020-09-26] MEDS: cloNIDine HCL 0.1 MG TABLET GT SCH (09:47)
[2020-09-26] MEDS: DOCUSATE NA 100 MG/10 ML UNIT-DOSE CUPS GT SCH (09:47)
[2020-09-26] MEDS: CARVEDILOL 25 MG TABLET (FP) GT SCH (09:47)
[2020-09-26] MEDS: SENNOSIDES 8.8 MG/5 ML BULK BOTTLE GT SCH (09:48)
[2020-09-26 17:05] VITALS: BP 138/81; PULSE 76; TEMP 98.2
== END 2020-09-26 17:28 | DRG 463 ==
LOC: JER 23:14 → JERBED 09-19 01:30 → J5S 09-19 20:54
PROVIDERS: ADMIT Internal Medicine; ATTEND Family Medicine
DX: N39.0 Urinary tract infection, site not specified (principal); G93.41 Metabolic encephalopathy; G40.909 Epilepsy, unspecified, not intractable, without status epilepticus; I10 Essential (primary) hypertension; E78.5 Hyperlipidemia, unspecified; G20 Parkinson's disease; I69.351 Hemiplegia and hemiparesis following cerebral infarction affecting right dominant side; J95.09 Other tracheostomy complication; Y83.8 Other surgical procedures as the cause of abnormal reaction of the patient, or of later complication, without mention of misadventure at the time of the procedure; J44.9 Chronic obstructive pulmonary disease, unspecified; R33.9 Retention of urine, unspecified; I12.9 Hypertensive chronic kidney disease with stage 1 through stage 4 chronic kidney disease, or unspecified chronic kidney disease; N18.30 Chronic kidney disease, stage 3 unspecified; F41.9 Anxiety disorder, unspecified; R45.1 Restlessness and agitation; E63.9 Nutritional deficiency, unspecified; L02.211 Cutaneous abscess of abdominal wall; R74.8 Abnormal levels of other serum enzymes; Z87.19 Personal history of other diseases of the digestive system; Z93.4 Other artificial openings of gastrointestinal tract status; J96.11 Chronic respiratory failure with hypoxia; D72.819 Decreased white blood cell count, unspecified
CPT/HCPCS: 36415; 36600; 70551-TC; 71045-TC-FY; 74181-TC; 76705-TC; 80053; 81003; 82803; 82962; 83516; 85025; 86038; 87040; 87086; 87186; 93005; 93010; 94640; 97161-GP; 99285-25; C9803; J0735; J1644; U0003; U0005